=== PATIENT | male | born 1940 | race Two or more races ===

== ENCOUNTER 2019-09-21 08:33 | Day surgery (SDC) | payer OTHER ==
[2019-09-20 17:24] VITALS: BMI 34.3
[2019-09-21 09:19] VITALS: BP 118/71; PULSE 106; TEMP 98.5
== END 2019-09-21 09:30 | disposition home or self-care (01) ==
LOC: JASU-SURG 08:33
PROVIDERS: ATTEND Urology
DX: Z53.8 Procedure and treatment not carried out for other reasons (principal)
CPT/HCPCS: 82962

== ENCOUNTER 2019-09-21 10:15 | Inpatient (IN) | payer OTHER ==
--- NOTE | 2019-09-21 10:48 | PDOC ---
History of Present Illness - General Stated Complaint: Shortness of Breath Time Seen by Provider: 09/21/19 10:35 Past History - Past Medical History Allergies/Adverse Reactions: Allergies Allergy/AdvReac Type Severity Reaction Status Date / Time No Known Drug Allergies Allergy Verified 04/11/16 09:50 Home Medications: Ambulatory Orders Metoprolol Succinate [Toprol Xl] 25 mg PO DAILY 09/21/19 Sitagliptin Phosphate [Januvia] 25 mg PO DAILY 09/21/19 Anemia: No Asthma: No Cancer: No Cardiac Disorders: No CVA: No COPD: No CHF: No Dementia: No Diabetes: Yes (NIDDM) GI Disorders: No Disorders: Yes (BPH) HTN: Yes Hypercholesterolemia: No Liver Disease: No Seizures: No Thyroid Disease: No - Surgical History Abdominal Surgery: No Appendectomy: No Cardiac Surgery: No Cholecystectomy: No Lung Surgery: No Neurologic Surgery: No Orthopedic Surgery: Yes (RIGHT KNEE ARTHROSCOPY 2005) - Immunization History Immunization Up to Date: Yes - Psycho Social/Smoking Cessation Hx Smoking History: Never smoked Have you smoked in the past 12 months: No Information on smoking cessation initiated: No Hx Alcohol Use: Yes Drug/Substance Use Hx: No Substance Use Type: Alcohol Hx Substance Use Treatment: No *Physical Exam - Vital Signs Last Vital Signs Temp Pulse Resp BP Pulse Ox 98.6 F 85 20 135/54 L 85 L 09/21/19 10:15 09/21/19 10:15 09/21/19 10:15 09/21/19 10:15 09/21/19 10:15 ED Treatment Course - LABORATORY CBC & Chemistry Diagram: 09/21/19 11:20 09/21/19 11:20 Medical Decision Making - Medical Decision Making 09/21/19 11:37 HPI: 79yo hx HTN, DM, prostate CA (s/p prostatectomy ~20yrs ago), LKR (2016), and chronic diastolic CHF (per chart review in 2016, LVSF normal, mild concentric LVH) sent from [facility] (there for penile lesion biopsy by Dr Serrano) for asymptomatic hypoxia with O2 sat 85-88% on RA. Endorses chronic difficulty with urination 2/2 BPH. Denies smoking, alcohol, drugs, hx pulmonary issues or COPD or asthma, CANTRELL, need for O2 at home, hx similar episodes, hx DVT/PE, hormone use , recent travel, recent surgery, cough, leg swelling, leg pain, fever, chills, fatigue, headache, dizziness, numbness/tingling, weakness, vision changes, shortness of breath, chest pain, palpitations, abdominal pain, blood in stool, diarrhea, constipation, nausea, vomiting, dysuria, hematuria, confusion. 04/19/16 - last Echo, LVSF normal, mild concentric LVH PCP - Mae Pastrana ROS: Constitutional: Negative for chills, fever, fatigue, diaphoresis. HENT: Negative for sore throat, rhinorrhea, congestion. Eyes: Negative for visual disturbance. Respiratory: Positive for low O2 sat. Negative for shortness of breath, CANTRELL, cough, and wheezing. Cardiovascular: Negative for chest pain, palpitations, and leg swelling. Gastrointestinal: Negative for abdominal pain, blood in stool, constipation, diarrhea, nausea, and vomiting. Genitourinary: Positive for chronic difficulty with urination and penile lesion. Negative for dysuria, flank pain, and hematuria. Musculoskeletal: Negative for myalgias, back pain, and neck pain. Skin: Negative for rash. Neurological: Negative for light-headedness, dizziness, vertigo, syncope, weakness, numbness and headaches. Psychiatric/Behavioral: Negative for behavioral problems and confusion. PE: Gen: Alert, NAD, comfortable-appearing. HEENT: PERRL, EOMI, MMM, NCAT. No conjunctival pallor. Sclera are non-icteric. CV: Regular rate and rhythm. +holosystolic murmur. No rubs, or gallops. PULM: No resp distress. CTAB, no wheezes, rales, or rhonchi. ABD: soft, NT/ND, no rebound tenderness or guarding, no CVA tenderness. BACK: No TTP of c/t/l-spine. No step-offs or deformities. MSK: No bony deformities. 2+ pulses in all extremities. NEURO: AAOx3. PERRL. No gross CN deficits. Strength and sensation grossly intact throughout. EXTREMITIES: No cyanosis. No clubbing. 1+ BLE edema. No calf tenderness. PSYCH: Normal mood and thought pattern. SKIN: Warm and dry. Normal capillary refill. No rashes. No jaundice. MDM: 79yo hx HTN, DM, prostate CA (s/p prostatectomy ~20yrs ago), LKR (2016), and chronic diastolic CHF (per chart review in 2016, LVSF normal, mild concentric LVH) sent from [facility] (there for penile lesion biopsy by Dr Serrano) for asymptomatic hypoxia with O2 sat 85-88% on RA. O2 sat 88% on RA, 94-96% on 2L NC, other VSS, afebrile, lungs CTAB, holosystolic murmur, 1+ BLE edema. Ddx: COPD, CHF, PNA, PE, ACS/AK, arrhythmia, methemoglobinemia, CO poisoning, metabolic derangement, anemia, infection, UTI -EKG reviewed: sinus rhythm with PACs, 85bpm, LAD, normal intervals, QTc 414ms, LVH, no e/o acute ischemia, no significant changes compared to 09/13/19 -CXR -CTPE -CBC,CMP,Mg,Phos,Coags,Cardiac profile,BNP,ABG,UA/UC -O2 NC 2L -Dispo: pending w/u, likely admit tele obs 09/21/19 12:17 Labs reviewed. CBC,CMP WBC 6.1 K/mm3 (4.0-10.0) 09/21/19 11:20 RBC 4.02 M/mm3 (4.00-5.60) 09/21/19 11:20 Hgb 13.0 GM/dL (11.7-16.9) 09/21/19 11:20 Hct 39.8 % (35.4-49) 09/21/19 11:20 MCV 99.1 fl (80-96) H 09/21/19 11:20 MCH 32.3 pg (25.7-33.7) 09/21/19 11:20 MCHC 32.6 g/dl (32.0-35.9) 09/21/19 11:20 RDW 16.7 % (11.9-15.9) H 09/21/19 11:20 Plt Count 160 K/MM3 (134-434) 09/21/19 11:20 MPV 8.5 fl (7.5-11.1) 09/21/19 11:20 Absolute Neuts (auto) 4.9 K/mm3 (1.5-8.0) 09/21/19 11:20 Neutrophils % 80.2 % (42.8-82.8) 09/21/19 11:20 Lymphocytes % 12.3 % (8-40) D 09/21/19 11:20 Monocytes % 5.3 % (3.8-10.2) 09/21/19 11:20 Eosinophils % 1.4 % (0-4.5) 09/21/19 11:20 Basophils % 0.8 % (0-2.0) 09/21/19 11:20 Nucleated RBC % 0 % (0-0) 09/21/19 11:20 Sodium 138 mmol/L (136-145) 09/21/19 11:20 Potassium 5.2 mmol/L (3.5-5.1) H 09/21/19 11:20 Chloride 98 mmol/L (98-107) 09/21/19 11:20 Carbon Dioxide 33 mmol/L (21-32) H 09/21/19 11:20 Anion Gap 7 MMOL/L (8-16) L 09/21/19 11:20 BUN 30.1 mg/dL (7-18) H 09/21/19 11:20 Creatinine 1.3 mg/dL (0.55-1.3) 09/21/19 11:20 Est GFR (CKD-EPI)AfAm 59.31 09/21/19 11:20 Est GFR (CKD-EPI)NonAf 51.17 09/21/19 11:20 Random Glucose 79 mg/dL (74-106) 09/21/19 11:20 Calcium 8.6 mg/dL (8.5-10.1) 09/21/19 11:20 Phosphorus 3.7 mg/dL (2.5-4.9) 09/21/19 11:20 Magnesium 1.9 mg/dL (1.8-2.4) 09/21/19 11:20 Total Bilirubin 1.7 mg/dL (0.2-1) H 09/21/19 11:20 AST 40 U/L (15-37) H 09/21/19 11:20 ALT 22 U/L (13-61) 09/21/19 11:20 Alkaline Phosphatase 121 U/L (45-117) H 09/21/19 11:20 Creatine Kinase 44 U/L (26-308) 09/21/19 11:20 Troponin I 0.26 ng/ml (0.00-0.05) H 09/21/19 11:20 B-Natriuretic Peptide 361.2 pg/ml (5-450) 09/21/19 11:20 Total Protein 7.2 g/dl (6.4-8.2) 09/21/19 11:20 Albumin 3.1 g/dl (3.4-5.0) L 09/21/19 11:20 Of note, trop 0.26, BNP 361.2, K 5.2, BUN 30.1, Cr 1.3 Per Attending, some crackles on lungs, in addition to LE edema, tx with lasix. -Lasix 20 IV -Aspirin 325 09/21/19 12:25 CXR reviewed: no acute pathology, no change compared to 09/13/19 09/21/19 12:48 ABG reviewed ABG Results ABG pH 7.38 (7.35-7.45) 09/21/19 12:33 ABG pCO2 at Pt Temp 57.9 mmHg (35-45) H 09/21/19 12:33 ABG pO2 at Pt Temp 66.6 mmHg (80-100) L 09/21/19 12:33 ABG HCO3 33.8 mmol/L (22-27) H 09/21/19 12:33 ABG O2 Sat (Measured) 91.2 % (95-98) L 09/21/19 12:33 ABG O2 Content 15.0 % vol 09/21/19 12:33 ABG Base Excess 7.5 meq/l (-2-2) H 09/21/19 12:33 09/21/19 13:50 Pt has intermittent cough while in ED. States that has chronic intermittent dry cough, unchanged recently. 09/21/19 15:38 CTPE reviewed: IMPRESSION: 1. Limited study with no evidence of central pulmonary emboli. 2. Enlarged central pulmonary arteries consistent with pulmonary hypertension. 3. Elevation of the left hemidiaphragm with extensive atelectatic changes involving the left upper and lower lobes. The possibility of acute pneumonia within the left upper lobe cannot be excluded. 4. Findings consistent with cirrhosis with large serpiginous varices within the upper abdomen. Signed out to admitting team. Pending urine and 2nd trop. Discharge - Discharge Information Problems reviewed: Yes Clinical Impression/Diagnosis: Troponin level elevated, Hypoxia Condition: Stable - Admission Yes - Follow up/Referral Referrals: July Pastrana [Primary Care Provider] - - Patient Discharge Instructions - Post Discharge Activity
[2019-09-21 11:09] VITALS: BMI 34.0
[2019-09-21 11:31] LABS: BASO % 0.8 % (0-2.0); EOS % 1.4 % (0-4.5); HEMATOCRIT 39.8 % (35.4-49); LYMPH % 12.3 % (8-40); MCH 32.3 pg (25.7-33.7); MCHC 32.6 g/dl (32.0-35.9); MEAN CELL VOLUME 99.1 fl (80-96); MEAN PLT VOLUME 8.5 fl (7.5-11.1); MONO % 5.3 % (3.8-10.2); NEUT % 80.2 % (42.8-82.8); PLATELET COUNT 160 K/MM3 (134-434); RBC 4.02 M/mm3 (4.00-5.60); RDW 16.7 % (11.9-15.9); WHITE BLOOD COUNT 6.1 K/mm3 (4.0-10.0)
[2019-09-21 11:45] LABS: INR 1.13 (0.83-1.09); PROTHROMBIN TIME (PATIENT) 13.4 SEC (9.7-13.0)
[2019-09-21 12:11] LABS: ALBUMIN 3.1 g/dl (3.4-5.0); BILIRUBIN,TOTAL 1.7 mg/dL (0.2-1); BLOOD UREA NITROGEN 30.1 mg/dL (7-18); CALCIUM 8.6 mg/dL (8.5-10.1); CREATININE 1.3 mg/dL (0.55-1.3); MAGNESIUM 1.9 mg/dL (1.8-2.4); N-TERMINAL BNP 361.2 pg/ml (5-450); PHOSPHOROUS 3.7 mg/dL (2.5-4.9); POTASSIUM 5.2 mmol/L (3.5-5.1); TOT PROT 7.2 g/dl (6.4-8.2)
[2019-09-21] MEDS ORDERED: SODIUM CHLORIDE 0.9% 500 ML INFUS.BAG IV ONE (12:12)
[2019-09-21] MEDS ORDERED: ASPIRIN 325 MG TABLET PO ONE (12:13)
[2019-09-21] MEDS ORDERED: FUROSEMIDE 40 MG/4 ML INJECTABLE VIAL IVPUSH ONE (12:16)
--- NOTE | 2019-09-21 12:21 | PDOC ---
Attending Attestation - Resident Resident Name: Yolanda Lo - ED Attending Attestation I have performed the following: I have examined & evaluated the patient, The case was reviewed & discussed with the resident, I agree w/resident's findings & plan - HPI HPI: 09/21/19 12:16 79-year-old male with history of hypertension, diabetes sent from [facility] where he was scheduled to have outpatient urology procedure for otherwise asymptomatic hypoxia. Patient denies any chest pain or palpitations, reports baseline limited exercise tolerance secondary to right knee pain, denies any new leg swelling or orthopnea. At baseline has ankle swelling and reports sleeping on 2 -3 pillows. No known exposures, no no smoking history, no recent DVT or PE risk factors - Physicial Exam PE: 09/21/19 12:18 Vitals as noted with O2 sat 85% on room air, improved to 93% on supplemental nasal cannula Alert, no acute distress, speaking full sentences No JVD Heart is regular, bibasilar crackles Abdomen benign 1+ pitting edema to mid ardon - Critical Care Time Total Critical Care Time: 30 Critical Care Statement: The care of this patient involved high complexity decision making to prevent further life threatening deterioration of the patient 's condition and/or to evaluate & treat vital organ system(s) failure or risk of failure. - Medical Decision Making 09/21/19 12:18 79-year-old male with otherwise asymptomatic hypoxia, history of diastolic heart failure and evidence of some volume overload here. Question chronic CHF versus chronic lung disease, rule out infectious process or PE, but seems clinically less likely. No evidence of other exposures. Labs including ABG Chest x-ray, EKG Supplemental oxygen Chest x-ray, CTA chest Admission 09/21/19 12:19 Labs notable for equivocal troponin, normal BNP, normal white count, creatinine 1.3 with potassium 5.2. Chest x-ray with large heart, left lower lobe density versus diaphragmatic elevation on my preliminary review Trial of low-dose Lasix, proceed with admission, CTA imaging pending. Heart Score/ECG Review #1 ECG reviewed & interpreted by me at: 10:09 General ECG Interpretation: Sinus Rhythm, Normal Rate (85), Normal Intervals ( qtc 414, LVH), No acute ischemic changes (prwp with Q waves throughout precordium)
[2019-09-21] MEDS ORDERED: ASPIRIN 81 MG CHEWABLE TABLETS ONE (12:31)
[2019-09-21] MEDS ORDERED: FUROSEMIDE 40 MG/4 ML INJECTABLE VIAL ONE (12:32)
[2019-09-21 12:41] LABS: ARTERIAL BLD GAS O2 SATURATION 91.2 % (95-98); ARTERIAL BLOOD GAS BASE EXCESS 7.5 meq/l (-2-2); ARTERIAL BLOOD GAS PCO2 57.9 mmHg (35-45); ARTERIAL BLOOD GAS PO2 66.6 mmHg (80-100); ARTERIAL BLOOD GAS pH 7.38 (7.35-7.45)
[2019-09-21 12:42] LABS: ALLENS TEST POSITIVE
--- NOTE | 2019-09-21 14:46 | EKG ---
Test Reason : Blood Pressure : / mmHG Vent. Rate : 085 BPM Atrial Rate : 085 BPM P-R Int : 166 ms QRS Dur : 090 ms QT Int : 348 ms P-R-T Axes : -08 -38 004 degrees QTc Int : 414 ms SINUS RHYTHM WITH PREMATURE ATRIAL COMPLEXES LEFT AXIS DEVIATION VOLTAGE CRITERIA FOR LEFT VENTRICULAR HYPERTROPHY POSSIBLE LATERAL INFARCT (CITED ON OR BEFORE 29-APR-2016) INFERIOR INFARCT (CITED ON OR BEFORE 29-APR-2016) ABNORMAL ECG WHEN COMPARED WITH ECG OF 13-SEP-2019 10:28, PREMATURE ATRIAL COMPLEXES ARE NOW PRESENT Confirmed by MD TAY, LONNIE ([id number]) on 09/21/2019 2:45:56 PM Referred By: Confirmed By:LONNIE CROSS MD
--- NOTE | 2019-09-21 15:40 | HP ---
CHIEF COMPLAINT: asymptomatic hypoxia pre - op for urology procedure PCP: Dr. Pastrana HISTORY OF PRESENT ILLNESS: Patient is an 79 year old male with a significant past medical history of hypertension and diabetes. He was scheduled for a scheduled penile biopsy as an outpatient today at [facility]. He was noted to have low oxygen levels in the 80s during pre-op but was asymptomatic without any complaints. Patient denies any chest pain or palpitations, reports baseline limited exercise tolerance secondary to right knee pain, denies any new leg swelling but reports orthopnea at home and has to use a few pillows (2-3) to prop him up to sleep. At baseline has ankle swelling +1 bilaterally. No known exposures, no smoking history, no recent DVT or PE risk factors. ER course was notable for: (1) cta/chest: no evidence of PE, enlarged central pulmonary arteries consistent with pulm. hypertension, elevation of the left hemidiaphragm with extensive atelectatic changes involving the left upper and lower lobes. possible acute pneumonia within the left upper lobe cannot be excluded. 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 (2) trop 0.26, 0.24 (3) bili 1.7 (4) k 5.2 (5) ab.38, co2 57.9, 02. 65.6, hco3 33.8, o2 91.2 Recent Travel: PAST MEDICAL HISTORY: hypertension and diabetes PAST SURGICAL HISTORY: Social History: Smoking: denies Alcohol: occasional Drugs: none Allergies No Known Drug Allergies Allergy (Verified 04/11/16 09:50) HOME MEDICATIONS: Home Medications Medication Instructions Recorded Metoprolol Succinate [Toprol Xl] 25 mg PO DAILY 09/21/19 Sitagliptin Phosphate [Januvia] 25 mg PO DAILY 09/21/19 REVIEW OF SYSTEMS CONSTITUTIONAL: Absent: fever, chills, diaphoresis, generalized weakness, malaise, loss of appetite, weight change HEENT: Absent: rhinorrhea, nasal congestion, throat pain, throat swelling, difficulty swallowing, mouth swelling, ear pain, eye pain, visual changes CARDIOVASCULAR: Absent: chest pain, syncope, palpitations, irregular heart rate, lightheadedness , peripheral edema RESPIRATORY: Absent: cough, shortness of breath, dyspnea with exertion, wheezing, stridor, hemoptysis GASTROINTESTINAL: Absent: abdominal pain, abdominal distension, nausea, vomiting, diarrhea, constipation, melena, hematochezia GENITOURINARY: Absent: dysuria, frequency, urgency, hesitancy, hematuria, flank pain, genital pain MUSCULOSKELETAL: Absent: myalgia, arthralgia, joint swelling, back pain, neck pain SKIN: Absent: rash, itching, pallor HEMATOLOGIC/IMMUNOLOGIC: Absent: easy bleeding, easy bruising, lymphadenopathy, frequent infections ENDOCRINE: Absent: unexplained weight gain, unexplained weight loss, heat intolerance, cold intolerance NEUROLOGIC: Absent: headache, focal weakness or paresthesias, dizziness, unsteady gait, seizure, mental status changes, bladder or bowel incontinence PSYCHIATRIC: Absent: anxiety, depression, suicidal or homicidal ideation, hallucinations. PHYSICAL EXAMINATION Vital Signs - 24 hr 09/21/19 10:15 Temperature 98.6 F Pulse Rate 85 Respiratory 20 Rate Blood Pressure 135/54 L O2 Sat by Pulse 85 L Oximetry (%) GENERAL: Awake, alert, and fully oriented, in no acute distress. tolerating room air HEAD: Normal with no signs of trauma. EYES: Pupils equal, round and reactive to light, extraocular movements intact, sclera anicteric, conjunctiva clear. No lid lag. EARS, NOSE, THROAT: Ears normal, nares patent, oropharynx clear without exudates. Moist mucous membranes. NECK: Normal range of motion, supple without lymphadenopathy, JVD, or masses. LUNGS: left lung with diminished breath sounds, right lung clear to auscultation HEART: Regular rate and rhythm ABDOMEN: Soft, nontender, not distended, normoactive bowel sounds, no guarding, no rebound, no masses. No hepatomegaly or splenomegaly. MUSCULOSKELETAL: Normal range of motion at all joints. No bony deformities or tenderness. No CVA tenderness. UPPER EXTREMITIES: No peripheral edema. LOWER EXTREMITIES: 2+ peripheral edema bilaterally lower ext. NEUROLOGICAL: Normal speech. Normal gait. PSYCHIATRIC: Appropriate mood and affect. SKIN: Warm, dry, normal turgor, no rashes or lesions noted, normal capillary refill. Laboratory Results - last 24 hr 09/21/19 09/21/19 09/21/19 11:20 11:20 11:20 WBC 6.1 RBC 4.02 Hgb 13.0 Hct 39.8 MCV 99.1 H MCH 32.3 MCHC 32.6 RDW 16.7 H Plt Count 160 MPV 8.5 Absolute Neuts (auto) 4.9 Neutrophils % 80.2 Lymphocytes % 12.3 D Monocytes % 5.3 Eosinophils % 1.4 Basophils % 0.8 Nucleated RBC % 0 PT with INR INR Anticoagulation Therapy Puncture Site ABG pH ABG pCO2 at Pt Temp ABG pO2 at Pt Temp ABG HCO3 ABG O2 Sat (Measured) ABG O2 Content ABG Base Excess Padilla Test Carboxyhemoglobin Methemoglobin O2 Delivery Device Oxygen Flow Rate Vent Mode Vent Rate Mechanical Rate Pressure Support Vent Sodium 138 Potassium 5.2 H Chloride 98 Carbon Dioxide 33 H Anion Gap 7 L BUN 30.1 H Creatinine 1.3 Est GFR (CKD-EPI)AfAm 59.31 Est GFR (CKD-EPI)NonAf 51.17 Random Glucose 79 Calcium 8.6 Phosphorus Magnesium Total Bilirubin 1.7 H AST 40 H ALT 22 Alkaline Phosphatase 121 H Creatine Kinase 44 Troponin I 0.26 H B-Natriuretic Peptide Total Protein 7.2 Albumin 3.1 L 09/21/19 09/21/19 09/21/19 11:20 11:20 12:33 WBC RBC Hgb Hct MCV MCH MCHC RDW Plt Count MPV Absolute Neuts (auto) Neutrophils % Lymphocytes % Monocytes % Eosinophils % Basophils % Nucleated RBC % PT with INR 13.40 H INR 1.13 H Anticoagulation Therapy No Result Required. Puncture Site Left radial ABG pH 7.38 ABG pCO2 at Pt Temp 57.9 H ABG pO2 at Pt Temp 66.6 L ABG HCO3 33.8 H ABG O2 Sat (Measured) 91.2 L ABG O2 Content 15.0 ABG Base Excess 7.5 H Padilla Test Positive Carboxyhemoglobin 2.0 Methemoglobin < 1.0 O2 Delivery Device No Result Required. Oxygen Flow Rate N/c Vent Mode No Result Required. Vent Rate No Result Required. Mechanical Rate No Result Required. Pressure Support Vent No Result Required. Sodium Potassium Chloride Carbon Dioxide Anion Gap BUN Creatinine Est GFR (CKD-EPI)AfAm Est GFR (CKD-EPI)NonAf Random Glucose Calcium Phosphorus 3.7 Magnesium 1.9 Total Bilirubin AST ALT Alkaline Phosphatase Creatine Kinase Troponin I B-Natriuretic Peptide 361.2 Total Protein Albumin ASSESSMENT/PLAN: Problem List - Problem (1) Acute hypercapnic respiratory failure Assessment/Plan: patient airway stable, will put on 2 liters of nasal cannula and alternate with venti mask pulmonary west stable, mental status at baseline co2 elevated at 57 monitor Code(s): J96.02 - ACUTE RESPIRATORY FAILURE WITH HYPERCAPNIA (2) Cirrhosis Assessment/Plan: large serpignous varicies within the upper abdomen seen. will consult GI for further recommendations Code(s): K74.60 - UNSPECIFIED CIRRHOSIS OF LIVER (3) Hypoxia Assessment/Plan: cta with significant atelectsis of left upper and lower lobe as well as possible acute pneumonia. patient is afebrile and hemodynaically stable. will give ceftriaxone and azithromycin pending pulmonary further recommedations monitor air way 2 liters of nasal cannula, duonebs ordered currently reports being comfortable on room air, however reports orthpnea bnp stable Code(s): R09.02 - HYPOXEMIA (4) Troponin level elevated Assessment/Plan: trop 0.26, 0.24, no chest pain cardiology consulted will hold of on anticoag as patient has varicies seen on CTA Code(s): R79.89 - OTHER SPECIFIED ABNORMAL FINDINGS OF BLOOD CHEMISTRY (5) Abnormal LFTs (liver function tests) Assessment/Plan: monitor daily Code(s): R79.89 - OTHER SPECIFIED ABNORMAL FINDINGS OF BLOOD CHEMISTRY (6) Acute kidney injury Assessment/Plan: monitor daily kidney function Code(s): N17.9 - ACUTE KIDNEY FAILURE, UNSPECIFIED (7) Diabetes Assessment/Plan: novolog ss based on bgms. hmga1c in a.m. Code(s): E11.9 - TYPE 2 DIABETES MELLITUS WITHOUT COMPLICATIONS (8) Pneumonia Assessment/Plan: start on ceftriaxone and azithromycin pending pulmonary consult Code(s): J18.9 - PNEUMONIA, UNSPECIFIED ORGANISM (9) Prophylactic measure Assessment/Plan: fen tolerating po/diabetic diet monitor electrolytes full code Code(s): Z29.9 - ENCOUNTER FOR PROPHYLACTIC MEASURES, UNSPECIFIED Visit type - Emergency Visit Emergency Visit: Yes ED Registration Date: 09/21/19 Care time: The patient presented to the Emergency Department on the above date and was hospitalized for further evaluation of their emergent condition. - New Patient This patient is new to me today: Yes Date on this admission: 09/22/19 - Critical Care Critical Care patient: No
[2019-09-21] MEDS ORDERED: ENOXAPARIN NA (PORCINE) 100 MG/1 ML DISP.SYRIN SQ ONE (17:45)
[2019-09-21] MEDS ORDERED: CEFTRIAXONE 1 GM in DEXTROSE 5%-WATER - 50 ML IVPB ONE (17:45)
[2019-09-21] MEDS ORDERED: DEXTROSE 5%-WATER - 50 ML IVPB ONE (18:48)
[2019-09-21] MEDS ORDERED: cefTRIAXone SODIUM 1 GM VIAL ONE (18:48)
[2019-09-21] MEDS: AZITHROMYCIN IVPB 500 MG/250 ML BAG IVPB SCH (19:00)
[2019-09-21 19:58] LABS: EPI CELLS 0.4 /HPF (0-5/HPF); HYALINE CASTS 1 /lpf (0-8); URINE APPEARANCE CLEAR; URINE BACTERIA 1.5 /hpf (NEGATIVE); URINE BILIRUBIN NEGATIVE (NEGATIVE); URINE COLOR YELLOW; URINE GLUCOSE (UA) NEGATIVE (NEGATIVE); URINE KETONE NEGATIVE (NEGATIVE); URINE LEUK ESTERASE TRACE (NEGATIVE); URINE NITRITE NEGATIVE (NEGATIVE); URINE PROTEIN NEGATIVE (NEGATIVE); URINE RBC 22 /hpf (0-4); URINE UROBILINOGEN 0.2 mg/dL (0.2-1.0); URINE WBC 1 /hpf (0-5)
--- NOTE | 2019-09-21 20:03 | CON.CARD ---
Consult Consult Specialty:: cardiollogy Reason for Consultation:: elevated TNI; hypoxia - History of Present Illness History of Present Illness: Mr. Hardy is an 79-year-old man with history of hypertension, diabetes,liver cirrhosis, now sent from [facility], where he was scheduled to have outpatient urology procedure, for asymptomatic hypoxia. In ER, TNI was noted to be elevated (0.26). Patient denies any chest pain or palpitations; reports baseline limited exercise tolerance secondary to right knee pain, denies any new leg swelling, or orthopnea. At baseline, has ankle swelling, and reports sleeping on 2-3 pillows. No known exposures, no no smoking history, no recent DVT or PE risk factors. 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 Cardio/Vascular: Yes: Aortic Insufficiency, HTN Pulmonary: Yes: COPD, Pneumonia Hepatobiliary: Yes: Other (cirrhosis, varices, splenomegaly, portal hypertension) Musculoskeletal: Yes: Osteoarthritis Endocrine: Yes: Diabetes Mellitus - Past Surgical History Past Surgical History: Yes: Joint Replacement (Left TKR) - Alcohol/Substance Use Hx Alcohol Use: Yes History of Substance Use: reports: None - Smoking History Smoking history: Never smoked Have you smoked in the past 12 months: No - Social History Usual Living Arrangement: Other ( from -lives alone) ADL: Independent Home Medications - Allergies Allergies/Adverse Reactions: Allergies Allergy/AdvReac Type Severity Reaction Status Date / Time No Known Drug Allergies Allergy Verified 04/11/16 09:50 - Home Medications Home Medications: Ambulatory Orders Sitagliptin Phosphate [Januvia] 25 mg PO DAILY 09/21/19 Amox-Tr/K Cl [Augmentin - 500Mg Tablet] 1 tab PO BID 5 Days #10 tab 09/24/19 Nadolol [Corgard -] 20 mg PO DAILY #90 tablet 09/24/19 Vital Signs: Vital Signs Temperature 98.3 F 09/21/19 18:02 Pulse Rate 107 H 09/21/19 18:02 Respiratory Rate 20 09/21/19 18:02 Blood Pressure 131/74 09/21/19 18:02 O2 Sat by Pulse Oximetry (%) 92 L 09/21/19 18:02 - Other Data Labs, Other Data: CBC, BMP 09/21/19 11:20 09/21/19 11:20 INR, PTT INR 1.13 (0.83-1.09) H 09/21/19 11:20 Troponin, BNP 09/21/19 09/21/19 09/21/19 11:20 11:20 15:50 Troponin I 0.26 H 0.24 H B-Natriuretic Peptide 361.2 Troponin, BNP 09/21/19 09/21/19 09/21/19 11:20 11:20 15:50 Troponin I 0.26 H 0.24 H B-Natriuretic Peptide 361.2 Imaging - Results Chest X-ray: Image Reviewed Cat Scan: Image Reviewed Problem List - Problems (1) Respiratory failure with hypoxia and hypercapnia Assessment/Plan: being treated for pneumonia. F/u ECHO. Code(s): J96.91 - RESPIRATORY FAILURE, UNSPECIFIED WITH HYPOXIA; J96.92 - RESPIRATORY FAILURE, UNSPECIFIED WITH HYPERCAPNIA (2) Cirrhosis Assessment/Plan: F/u with GI. Code(s): K74.60 - UNSPECIFIED CIRRHOSIS OF LIVER (3) Hypoxia Code(s): R09.02 - HYPOXEMIA (4) Pneumonia Assessment/Plan: on antibiotics. Code(s): J18.9 - PNEUMONIA, UNSPECIFIED ORGANISM (5) Troponin level elevated Assessment/Plan: TNI 0.26 (with CK 44)-->0.24 TNi 0.02 in 2016. EKG: NSR; suggestion of old IW and/or lateral myocardial injury; no acute STT changes. Plan: f/u on telemetry ECHO for LVEF, wall motion, chamber size, valve status (hx pulmonary HTN). Records of previous cardiac workups (pt is a poor historian). Code(s): R79.89 - OTHER SPECIFIED ABNORMAL FINDINGS OF BLOOD CHEMISTRY (6) Abnormal LFTs (liver function tests) Code(s): R79.89 - OTHER SPECIFIED ABNORMAL FINDINGS OF BLOOD CHEMISTRY (7) Hyperlipidemia with target LDL less than 70 Code(s): E78.5 - HYPERLIPIDEMIA, UNSPECIFIED (8) Pneumonia Assessment/Plan: On antibiotics. Fluids (PO and IV). Code(s): J18.9 - PNEUMONIA, UNSPECIFIED ORGANISM Qualifiers: Pneumonia type: aspiration pneumonia Aspiration pneumonia type: due to vomi t Lung location: lower lobe of lung (9) Status post left knee replacement Code(s): Z96.652 - PRESENCE OF LEFT ARTIFICIAL KNEE JOINT (10) Hyperkalemia Assessment/Plan: F/u electrolytes as he undergoes hydration. Code(s): E87.5 - HYPERKALEMIA (11) Dehydration Assessment/Plan: Start IV fluids; encourage PO fluids. F/u Is and Os, electrolytes (mild hyperkalemia on admission). Code(s): E86.0 - DEHYDRATION (12) Acquired elevated diaphragm Assessment/Plan: CT chest: significantly elevated left hemidiagphragm with related atelectasis; no pleural effusion. Being treated for pneumonia. On fluids. Code(s): J98.6 - DISORDERS OF DIAPHRAGM (13) Hematuria Assessment/Plan: f/u Hb. F/u with urologist. Code(s): R31.9 - HEMATURIA, UNSPECIFIED Qualifiers: Glomerular morphologic changes: dense deposit disease (14) Pulmonary HTN Code(s): I27.20 - PULMONARY HYPERTENSION, UNSPECIFIED
[2019-09-21] MEDS: DEXTROSE 5%-0.45% SALINE 1,000 ML IV SCH (21:11)
[2019-09-21] MEDS: INSULIN SLIDING SCALE (NOVOLOG) 1 VIAL SQ SCH (21:12)
[2019-09-22] MEDS: INSULIN SLIDING SCALE (NOVOLOG) 1 VIAL SQ SCH ×4 (06:02→21:43)
[2019-09-22 08:00] LABS: BASO % 0.7 % (0-2.0); EOS % 7.4 % (0-4.5); HEMATOCRIT 33.9 % (35.4-49); HEMOGLOBIN 11.3 GM/dL (11.7-16.9); LYMPH % 22.1 % (8-40); MCH 32.8 pg (25.7-33.7); MCHC 33.4 g/dl (32.0-35.9); MEAN PLT VOLUME 8.2 fl (7.5-11.1); MONO % 6.2 % (3.8-10.2); NEUT % 63.6 % (42.8-82.8); PLATELET COUNT 123 K/MM3 (134-434); RBC 3.46 M/mm3 (4.00-5.60); WHITE BLOOD COUNT 4.9 K/mm3 (4.0-10.0)
[2019-09-22 08:27] LABS: ALBUMIN 2.6 g/dl (3.4-5.0); BILIRUBIN,TOTAL 1.2 mg/dL (0.2-1); BLOOD UREA NITROGEN 32.2 mg/dL (7-18); CALCIUM 8.5 mg/dL (8.5-10.1); CREATININE 1.3 mg/dL (0.55-1.3); MAGNESIUM 1.8 mg/dL (1.8-2.4); POTASSIUM 4.2 mmol/L (3.5-5.1)
--- NOTE | 2019-09-22 08:37 | CON.GI ---
Consult Consult Specialty:: GI Referred by:: Chika Bui NP Reason for Consultation:: Varices - History of Present Illness History of Present Illness: Patient is a 79 y/o male with past medical history of HTN and DM. Consult was placed for large sepignious varices within upper abdomen. Patient had an episode prior to urology procedure yesterday and Chest CTA was done which showed incidental findings consistent with cirrhosis with large sepignious varices within the upper abdomen. Patient states that he used to drink a pint of whiskey a day starting in his 20s. He states he has "slowed down" since then with his drinking. Denies nausea, vomiting, abdominal pain, diarrhea, constipation, rectal bleeding, melena, or abnormal weight loss. 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 Cardio/Vascular: Yes: Aortic Insufficiency, HTN Pulmonary: Yes: COPD, Pneumonia Hepatobiliary: Yes: Other (cirrhosis, varices, splenomegaly, portal hypertension) Musculoskeletal: Yes: Osteoarthritis Endocrine: Yes: Diabetes Mellitus - Past Surgical History Past Surgical History: Yes: Joint Replacement (Left TKR) - Alcohol/Substance Use Hx Alcohol Use: Yes History of Substance Use: reports: None - Smoking History Smoking history: Never smoked Have you smoked in the past 12 months: No - Social History Usual Living Arrangement: Other ( from -lives alone) ADL: Independent Home Medications - Allergies Allergies/Adverse Reactions: Allergies Allergy/AdvReac Type Severity Reaction Status Date / Time No Known Drug Allergies Allergy Verified 04/11/16 09:50 - Home Medications Home Medications: Ambulatory Orders Metoprolol Succinate [Toprol Xl] 25 mg PO DAILY 09/21/19 Sitagliptin Phosphate [Januvia] 25 mg PO DAILY 09/21/19 Review of Systems - Review of Systems Constitutional: reports: No Symptoms Eyes: reports: No Symptoms HENT: reports: No Symptoms Neck: reports: No Symptoms Cardiovascular: reports: No Symptoms Respiratory: reports: No Symptoms Gastrointestinal: reports: No Symptoms Genitourinary: reports: No Symptoms Breasts: reports: No Symptoms Reported Musculoskeletal: reports: No Symptoms Integumentary: reports: No Symptoms Neurological: reports: No Symptoms Endocrine: reports: No Symptoms Hematology/Lymphatic: reports: No Symptoms Psychiatric: reports: No Symptoms Physical Exam-GI Vital Signs: Vital Signs Temperature 97.9 F 09/22/19 05:00 Pulse Rate 81 09/22/19 05:00 Respiratory Rate 20 09/22/19 05:00 Blood Pressure 123/64 09/22/19 05:00 O2 Sat by Pulse Oximetry (%) 94 L 09/21/19 21:00 Constitutional: Yes: No Distress, Calm Eyes: Yes: Conjunctiva Clear HENT: Yes: Atraumatic Cardiovascular: Yes: Regular Rate and Rhythm Respiratory: Yes: Regular, Diminished Gastrointestinal Inspection: Yes: WNL. No: Ascites, Distention, Hernia, Scars, Other ...Auscultate: Yes: Normoactive Bowel Sounds. No: Hyperactive Bowel Sounds, Hypoactive Bowel Sounds, No Bowel Sounds, Other ...Palpate: Yes: Soft. No: Firm/Rigid, Guarding, Hepatomegaly, Mass, Pulsatile Mass, Splenomegaly, Tenderness, Tenderness, Epigastium, Tenderness, Rebound, Other ...Percussion: Yes: Tympanitic. No: Dullness, Fluid Wave, Other Neurological: Yes: Alert, Oriented Psychiatric: Yes: Alert, Oriented Labs: CBC, BMP 09/22/19 07:05 09/22/19 07:05 INR, PTT INR 1.13 (0.83-1.09) H 09/21/19 11:20 Active Medications Generic Name Dose Route Start Last Admin Trade Name Brodyq PRN Reason Stop Dose Admin Azithromycin 500 mg in 250 mls @ 250 mls/hr 09/21/19 17:45 09/21/19 19:00 Zithromax 500mg Ivpb (Pre-Docked) IVPB 250 mls/hr DAILY JESSICA Administration Dextrose/Sodium Chloride 1,000 mls @ 83 mls/hr 09/21/19 20:30 09/21/19 21:11 D5-1/2ns - IV 83 mls/hr ASDIR JESSICA Administration Insulin Aspart 1 vial 09/21/19 22:00 09/22/19 06:02 Novolog Vial Sliding Scale - SQ Not Given ACHS JESSICA Protocol Nadolol 20 mg 09/22/19 10:00 Corgard - PO DAILY JESSICA Problem List - Problems (1) Cirrhosis, alcoholic Assessment/Plan: R>Needs EGD as outpatient to R/O Varices Chronic liver work-up as outpatient AFP [id number] and Abdominal US [id number] to screen for hepatoma instructed to follow up as outpatient Labs: Hepatitis profile Code(s): K70.30 - ALCOHOLIC CIRRHOSIS OF LIVER WITHOUT ASCITES
[2019-09-22] MEDS ORDERED: PT OWN MED DRAWER 7, Y5N ONE (09:15)
[2019-09-22] MEDS: AZITHROMYCIN IVPB 500 MG/250 ML BAG IVPB SCH (09:40)
[2019-09-22] MEDS: NADOLOL 20 MG TABLET (FP) PO SCH (09:40)
[2019-09-22] MEDS ORDERED: metoPROLOL SUCCINATE 25 MG TAB.SR.24H (FP) PO SCH (10:00)
--- NOTE | 2019-09-22 11:13 | PN ---
Progress Note (short form) - Note Progress Note: PULMONARY CONSULTATION DICTATED 09/22/19 IMP DYSPNEA ACUTE ON CHRONIC HYPOXEMIC/ HYPERCAPNEIC RESPIRATORY FAILURE PULMONARY HTN CHRONIC ATELECTATIC CHANGES LEFT HEMITHORAX LIKELY LEFT DIAPHRAGMATIC PARALYSIS ELEVATED TROPONIN HTN DM PLAN SUPPLEMENTAL O2 ECHO SNIFF TEST OUTPATIENT PFTS TREND TROPONINS SLEEP STUDIES AMBULATORY O2 SAT ON PRIOR TO DISCHARGE DR VILLASEÑOR Problem List - Problems (1) Acquired elevated diaphragm Code(s): J98.6 - DISORDERS OF DIAPHRAGM (2) Diabetes Code(s): E11.9 - TYPE 2 DIABETES MELLITUS WITHOUT COMPLICATIONS (3) Hypoxia Code(s): R09.02 - HYPOXEMIA (4) Pulmonary HTN Code(s): I27.20 - PULMONARY HYPERTENSION, UNSPECIFIED (5) Respiratory failure with hypoxia and hypercapnia Code(s): J96.91 - RESPIRATORY FAILURE, UNSPECIFIED WITH HYPOXIA; J96.92 - RESPIRATORY FAILURE, UNSPECIFIED WITH HYPERCAPNIA (6) Acute hypercapnic respiratory failure Code(s): J96.02 - ACUTE RESPIRATORY FAILURE WITH HYPERCAPNIA (7) HTN (hypertension) Code(s): I10 - ESSENTIAL (PRIMARY) HYPERTENSION (8) Troponin I above reference range Code(s): R79.89 - OTHER SPECIFIED ABNORMAL FINDINGS OF BLOOD CHEMISTRY
--- NOTE | 2019-09-22 12:42 | ECHO ---
Version: 1 Name: PREM VAIL Exam: Adult Echocardiogram Study Date: 09/22/2019, 11:33 AM Age: 79 Years MMode/2D Measurements & Calculations IVSd: 1.18 cm LVIDs: 3.4 cm LVIDd: 5.4 cm LVPWd: 1.15 cm LAV (MOD-bp): 95.0 ml ACS: 1.99 cm Ao root diam: 3.6 cm LVOT diam: 2.40 cm LA dimension: 4.4 cm Doppler Measurements & Calculations MV E max robert: 76.0 cm/sec Med E/e': 13.2 MV A max robert: 94.3 cm/sec Med Peak E' Robert: 5.8 cm/sec MV E/A: 0.81 Lat E/e': 8.2 Lat Peak E' Robert: 9.3 cm/sec Ao max P.2 mmHg ELFEGO(I,D): 2.25 cm Ao mean P.6 mmHg LV V1 mean: 63.1 cm/sec Ao V2 max: 194.8 cm/sec LV V1 mean P.80 mmHg AI P1/2t: 478.2 msec PI end-d robert: 130.3 cm/sec TR max robert: 275.1 cm/sec TR max P.3 mmHg Left Ventricle The left ventricular size, thickness and function are normal. Ejection Fraction = 65%. The transmitr al spectral Doppler flow pattern is suggestive of impaired LV relaxation. Right Ventricle The right ventricle is grossly normal size. The right ventricular systolic function is mildly reduce d. Atria The left atrium is moderately dilated. Right atrial size is normal. Mitral Valve There is mild to moderate mitral annular calcification. There is mild mitral regurgitation. Tricuspid Valve The tricuspid valve is not well visualized, but is grossly normal. There is mild tricuspid regurgita tion. Aortic Valve There is moderate aortic sclerosis.;. Mild to moderate aortic regurgitation. Pulmonic Valve The pulmonic valve is not well seen, but is grossly normal. Mild pulmonic valvular regurgitation. Great Vessels The aortic root is normal size. Normal aortic arch, descending and ascending aorta. Pericardium/Pleura There is no pericardial effusion. Tech Comments TDS due to orientation of patient's heart and body habitus. Summary Statements The left ventricular size, thickness and function are normal Ejection Fraction = 65%. The transmitral spectral Doppler flow pattern is suggestive of impaired LV relaxation. The right ventricle is grossly normal size. The right ventricular systolic function is mildly reduced. The left atrium is moderately dilated. Right atrial size is normal. There is mild to moderate mitral annular calcification. There is mild mitral regurgitation. The tricuspid valve is not well visualized, but is grossly normal. There is mild tricuspid regurgitation. There is moderate aortic sclerosis.; Mild to moderate aortic regurgitation. The pulmonic valve is not well seen, but is grossly normal. Mild pulmonic valvular regurgitation. The aortic root is normal size. Normal aortic arch, descending and ascending aorta There is no pericardial effusion. Enrrique Riddle[place] 09/22/2019, 12:42 PM Ordering Physician: Cristy Hui Referring Physician: CRISTY HUI Performed By: Marleni Call
--- NOTE | 2019-09-22 14:02 | PN ---
Progress Note, Physician History of Present Illness: Mr. Hardy is an 79-year-old man with history of hypertension, diabetes,liver cirrhosis, now sent from [facility], where he was scheduled to have outpatient urology procedure, for asymptomatic hypoxia. In ER, TNI was noted to be elevated (0.26) . Patient denies any chest pain or palpitations; reports baseline limited exercise tolerance secondary to right knee pain, denies any new leg swelling, or orthopnea. At baseline, has ankle swelling, and reports sleeping on 2-3 pillows. No known exposures, no no smoking history, no recent DVT or PE risk factors. - Current Medication List Current Medications: Active Medications Azithromycin (Zithromax 500mg Ivpb (Pre-Docked)) 500 mg in 250 mls @ 250 mls/ hr IVPB DAILY [facility] Last Admin: 09/22/19 09:40 Dose: 250 mls/hr Dextrose/Sodium Chloride (D5-1/2ns -) 1,000 mls @ 83 mls/hr IV ASDIR [facility] Last Admin: 09/21/19 21:11 Dose: 83 mls/hr Insulin Aspart (Novolog Vial Sliding Scale -) 1 vial SQ ACHS [facility]; Protocol Last Admin: 09/22/19 13:16 Dose: Not Given Nadolol (Corgard -) 20 mg PO DAILY [facility] Last Admin: 09/22/19 09:40 Dose: 20 mg - Objective Vital Signs: Vital Signs Temperature 98.1 F 09/22/19 09:00 Pulse Rate 83 09/22/19 09:00 Respiratory Rate 18 09/22/19 09:00 Blood Pressure 117/55 L 09/22/19 09:00 O2 Sat by Pulse Oximetry (%) 94 L 09/22/19 09:00 Eyes: Yes: WNL, Conjunctiva Clear, EOM Intact HENT: Yes: WNL, Atraumatic, Normocephalic Neck: Yes: WNL, Supple, Trachea Midline Cardiovascular: Yes: WNL, Regular Rate and Rhythm Respiratory: Yes: WNL, Regular, CTA Bilaterally Gastrointestinal: Yes: WNL, Normal Bowel Sounds Genitourinary: Yes: WNL Musculoskeletal: Yes: WNL Extremities: Yes: WNL Edema: No Integumentary: Yes: WNL Neurological: Yes: WNL, Alert, Oriented ...Motor Strength: WNL Psychiatric: Yes: WNL Labs: CBC, BMP 09/22/19 07:05 09/22/19 07:05 INR, PTT INR 1.13 (0.83-1.09) H 09/21/19 11:20 Assessment/Plan - Problems (1) Respiratory failure with hypoxia and hypercapnia Code(s): J96.91 - RESPIRATORY FAILURE, UNSPECIFIED WITH HYPOXIA; J96.92 - RESPIRATORY FAILURE, UNSPECIFIED WITH HYPERCAPNIA (2) Cirrhosis Code(s): K74.60 - UNSPECIFIED CIRRHOSIS OF LIVER (3) Hypoxia Code(s): R09.02 - HYPOXEMIA (4) Pneumonia Code(s): J18.9 - PNEUMONIA, UNSPECIFIED ORGANISM (5) Troponin level elevated Assessment/Plan: TNI 0.26 (with CK 44)-->0.24 TNi 0.02 in 2016. EKG: NSR; suggestion of old IW and/or lateral myocardial injury; no acute STT changes. Plan: f/u on telemetry ECHO nl LVEF, Plan stress test when stable Code(s): R79.89 - OTHER SPECIFIED ABNORMAL FINDINGS OF BLOOD CHEMISTRY (6) Abnormal LFTs (liver function tests) Code(s): R79.89 - OTHER SPECIFIED ABNORMAL FINDINGS OF BLOOD CHEMISTRY (7) Hyperlipidemia with target LDL less than 70 Code(s): E78.5 - HYPERLIPIDEMIA, UNSPECIFIED (8) Pneumonia Assessment/Plan: On antibiotics. Fluids (PO and IV). Code(s): J18.9 - PNEUMONIA, UNSPECIFIED ORGANISM Qualifiers: Pneumonia type: aspiration pneumonia Aspiration pneumonia type: due to vomit Lung location: lower lobe of lung (9) Status post left knee replacement Code(s): Z96.652 - PRESENCE OF LEFT ARTIFICIAL KNEE JOINT (10) Hyperkalemia Assessment/Plan: F/u electrolytes as he undergoes hydration. Code(s): E87.5 - HYPERKALEMIA (11) Dehydration Assessment/Plan: Start IV fluids; encourage PO fluids. F/u Is and Os, electrolytes (mild hyperkalemia on admission). Code(s): E86.0 - DEHYDRATION (12) Acquired elevated diaphragm Assessment/Plan: CT chest: significantly elevated left hemidiagphragm with related atelectasis; no pleural effusion. Being treated for pneumonia. On fluids. Code(s): J98.6 - DISORDERS OF DIAPHRAGM (13) Hematuria Assessment/Plan: f/u Hb. F/u with urologist. Code(s): R31.9 - HEMATURIA, UNSPECIFIED Qualifiers: Glomerular morphologic changes: dense deposit disease (14) Pulmonary HTN Code(s): I27.20 - PULMONARY HYPERTENSION, UNSPECIFIED
--- NOTE | 2019-09-22 16:28 | PN ---
Physical Exam: SUBJECTIVE: Patient seen and examined at the bedside. on supplemental oxygen, denies any chest pain or shortness of breath. OBJECTIVE: Patient is an 79 year old male with a significant past medical history of hypertension and diabetes. He was scheduled for a scheduled penile biopsy as an outpatient at [facility]. He was noted to have low oxygen levels in the 80s during pre-op but was asymptomatic without any complaints. Patient denies any chest pain or palpitations, reports baseline limited exercise tolerance secondary to right knee pain, denies any new leg swelling but reports orthopnea at home and has to use a few pillows (2-3) to prop him up to sleep. At baseline has ankle swelling +1 bilaterally. No known exposures, no smoking history, no recent DVT or PE risk factors. imaging: cta/chest: no evidence of PE, enlarged central pulmonary arteries consistent with pulm. hypertension, elevation of the left hemidiaphragm with extensive atelectatic changes involving the left upper and lower lobes. possible acute pneumonia within the left upper lobe cannot be excluded. 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 Vital Signs Period Temp Pulse Resp BP Sys/Caal Pulse Ox Last 24 Hr 97.9 F-98.4 F 74-107 18-21 108-131/49-74 92-94 GENERAL: Awake, alert, and fully oriented, in no acute distress. tolerating room air HEAD: Normal with no signs of trauma. EYES: Pupils equal, round and reactive to light, extraocular movements intact, sclera anicteric, conjunctiva clear. No lid lag. EARS, NOSE, THROAT: Ears normal, nares patent, oropharynx clear without exudates. Moist mucous membranes. NECK: Normal range of motion, supple without lymphadenopathy, JVD, or masses. LUNGS: left lung with diminished breath sounds, right lung clear to auscultation HEART: Regular rate and rhythm ABDOMEN: Soft, nontender, not distended, normoactive bowel sounds, no guarding, no rebound, no masses. No hepatomegaly or splenomegaly. MUSCULOSKELETAL: Normal range of motion at all joints. No bony deformities or tenderness. No CVA tenderness. UPPER EXTREMITIES: No peripheral edema. LOWER EXTREMITIES: 2+ peripheral edema bilaterally lower ext. NEUROLOGICAL: Normal speech. Normal gait. PSYCHIATRIC: Appropriate mood and affect. SKIN: Warm, dry, normal turgor, no rashes or lesions noted, normal capillary refill. Laboratory Results - last 24 hr 09/21/19 09/21/19 09/21/19 15:50 17:40 21:10 WBC RBC Hgb Hct MCV MCH MCHC RDW Plt Count MPV Absolute Neuts (auto) Neutrophils % Lymphocytes % Monocytes % Eosinophils % Basophils % Nucleated RBC % Sodium Potassium Chloride Carbon Dioxide Anion Gap BUN Creatinine Est GFR (CKD-EPI)AfAm Est GFR (CKD-EPI)NonAf POC Glucometer 121 Random Glucose Hemoglobin A1c % Calcium Magnesium Total Bilirubin AST ALT Alkaline Phosphatase Troponin I 0.24 H Total Protein Albumin Triglycerides Cholesterol Total LDL Cholesterol HDL Cholesterol Urine Color Yellow Urine Appearance Clear Urine pH 5.0 Ur Specific [place] 1.025 Urine Protein Negative Urine Glucose (UA) Negative Urine Ketones Negative Urine Blood 3+ H Urine Nitrite Negative Urine Bilirubin Negative Urine Urobilinogen 0.2 Ur Leukocyte Esterase Trace Urine WBC (Auto) 1 Urine RBC (Auto) 22 Urine Casts (Auto) 1 U Epithel Cells (Auto) 0.4 Urine Bacteria (Auto) 1.5 09/22/19 09/22/19 09/22/19 05:47 07:05 07:05 WBC 4.9 RBC 3.46 L Hgb 11.3 L Hct 33.9 L MCV 98.0 H MCH 32.8 MCHC 33.4 RDW 17.0 H Plt Count 123 L D MPV 8.2 Absolute Neuts (auto) 3.1 Neutrophils % 63.6 D Lymphocytes % 22.1 D Monocytes % 6.2 Eosinophils % 7.4 H D Basophils % 0.7 Nucleated RBC % 0 Sodium 136 Potassium 4.2 Chloride 95 L Carbon Dioxide 36 H Anion Gap 5 L BUN 32.2 H Creatinine 1.3 Est GFR (CKD-EPI)AfAm 59.31 Est GFR (CKD-EPI)NonAf 51.17 POC Glucometer 116 Random Glucose 109 H Hemoglobin A1c % Calcium 8.5 Magnesium 1.8 Total Bilirubin 1.2 H AST 30 ALT 17 Alkaline Phosphatase 100 Troponin I 0.21 H Total Protein 6.0 L Albumin 2.6 L Triglycerides 89 Cholesterol 126 Total LDL Cholesterol 62 HDL Cholesterol 50 Urine Color Urine Appearance Urine pH Ur Specific [place] Urine Protein Urine Glucose (UA) Urine Ketones Urine Blood Urine Nitrite Urine Bilirubin Urine Urobilinogen Ur Leukocyte Esterase Urine WBC (Auto) Urine RBC (Auto) Urine Casts (Auto) U Epithel Cells (Auto) Urine Bacteria (Auto) 09/22/19 09/22/19 07:05 12:25 WBC RBC Hgb Hct MCV MCH MCHC RDW Plt Count MPV Absolute Neuts (auto) Neutrophils % Lymphocytes % Monocytes % Eosinophils % Basophils % Nucleated RBC % Sodium Potassium Chloride Carbon Dioxide Anion Gap BUN Creatinine Est GFR (CKD-EPI)AfAm Est GFR (CKD-EPI)NonAf POC Glucometer 123 Random Glucose Hemoglobin A1c % 5.3 Calcium Magnesium Total Bilirubin AST ALT Alkaline Phosphatase Troponin I Total Protein Albumin Triglycerides Cholesterol Total LDL Cholesterol HDL Cholesterol Urine Color Urine Appearance Urine pH Ur Specific [place] Urine Protein Urine Glucose (UA) Urine Ketones Urine Blood Urine Nitrite Urine Bilirubin Urine Urobilinogen Ur Leukocyte Esterase Urine WBC (Auto) Urine RBC (Auto) Urine Casts (Auto) U Epithel Cells (Auto) Urine Bacteria (Auto) Active Medications Generic Name Dose Route Start Last Admin Trade Name Freq PRN Reason Stop Dose Admin Azithromycin 500 mg in 250 mls @ 250 mls/hr 09/21/19 17:45 09/22/19 09:40 Zithromax 500mg Ivpb (Pre-Docked) IVPB 250 mls/hr DAILY JESSICA Administration Dextrose/Sodium Chloride 1,000 mls @ 83 mls/hr 09/21/19 20:30 09/21/19 21:11 D5-1/2ns - IV 83 mls/hr ASDIR JESSICA Administration Insulin Aspart 1 vial 09/21/19 22:00 09/22/19 13:16 Novolog Vial Sliding Scale - SQ Not Given ACHS JESSICA Protocol Nadolol 20 mg 09/22/19 10:00 09/22/19 09:40 Corgard - PO 20 mg DAILY JESSICA Administration ASSESSMENT/PLAN: Problem List - Problems (1) Acute hypercapnic respiratory failure Assessment/Plan: patient airway stable, on 2 liters of nasal cannula and alternate with venti mask. will order pre and post pulmonary west stable, mental status at baseline co2 elevated at 57 pulmonary following Code(s): J96.02 - ACUTE RESPIRATORY FAILURE WITH HYPERCAPNIA (2) Cirrhosis Assessment/Plan: large serpignous varicies within the upper abdomen seen. seen by GI who recommends outpatient follow up. started on nadolol hepatitis panel ordered Code(s): K74.60 - UNSPECIFIED CIRRHOSIS OF LIVER (3) Hypoxia Assessment/Plan: cta with significant atelectsis of left upper and lower lobe as well as possible acute pneumonia. patient is afebrile and hemodynaically stable. given ceftriaxone and azithromycin pending pulmonary further recommendations monitor air way 2 liters of nasal cannula, duonebs ordered currently reports being comfortable on room air, however reports orthpnea bnp stable Code(s): R09.02 - HYPOXEMIA (4) Troponin level elevated Assessment/Plan: trop 0.26, 0.24, no chest pain cardiology consulted and following will hold of on anticoag as patient has varicies seen on CTA Code(s): R79.89 - OTHER SPECIFIED ABNORMAL FINDINGS OF BLOOD CHEMISTRY (5) Abnormal LFTs (liver function tests) Assessment/Plan: monitor daily Code(s): R79.89 - OTHER SPECIFIED ABNORMAL FINDINGS OF BLOOD CHEMISTRY (6) Acute kidney injury Assessment/Plan: monitor daily kidney function renal dose meds Code(s): N17.9 - ACUTE KIDNEY FAILURE, UNSPECIFIED (7) Diabetes Assessment/Plan: novolog ss based on bgms. hmga1c shows controlled diabetes. Code(s): E11.9 - TYPE 2 DIABETES MELLITUS WITHOUT COMPLICATIONS (8) Pneumonia Assessment/Plan: start on ceftriaxone and azithromycin pending pulmonary consult Code(s): J18.9 - PNEUMONIA, UNSPECIFIED ORGANISM (9) Prophylactic measure Assessment/Plan: fen tolerating po/diabetic diet monitor electrolytes full code Code(s): Z29.9 - ENCOUNTER FOR PROPHYLACTIC MEASURES, UNSPECIFIED Visit type - Emergency Visit Emergency Visit: Yes ED Registration Date: 09/21/19 Care time: The patient presented to the Emergency Department on the above date and was hospitalized for further evaluation of their emergent condition. - New Patient This patient is new to me today: No - Critical Care Critical Care patient: No - Discharge Referral Referred to [facility] No
[2019-09-22] MEDS ORDERED: CEFTRIAXONE 1 GM in DEXTROSE 5%-WATER - 50 ML IVPB ONE (17:06)
[2019-09-22] MEDS ORDERED: cefTRIAXone SODIUM 1 GM VIAL ONE (17:40)
[2019-09-22] MEDS ORDERED: DEXTROSE 5%-WATER - 50 ML IVPB ONE (17:41)
[2019-09-22] MEDS: DEXTROSE 5%-0.45% SALINE 1,000 ML IV SCH (21:42)
[2019-09-23 07:44] LABS: BASO % 0.5 % (0-2.0); EOS % 7.9 % (0-4.5); HEMATOCRIT 35.3 % (35.4-49); HEMOGLOBIN 11.8 GM/dL (11.7-16.9); LYMPH % 12.8 % (8-40); MCHC 33.5 g/dl (32.0-35.9); MEAN CELL VOLUME 98.5 fl (80-96); MEAN PLT VOLUME 8.3 fl (7.5-11.1); MONO % 5.1 % (3.8-10.2); NEUT % 73.7 % (42.8-82.8); PLATELET COUNT 135 K/MM3 (134-434); RBC 3.58 M/mm3 (4.00-5.60); RDW 17.1 % (11.9-15.9); WHITE BLOOD COUNT 7.4 K/mm3 (4.0-10.0)
[2019-09-23] MEDS: INSULIN SLIDING SCALE (NOVOLOG) 1 VIAL SQ SCH ×4 (08:00→21:11)
[2019-09-23 08:03] LABS: ALBUMIN 2.7 g/dl (3.4-5.0); BILIRUBIN,TOTAL 0.8 mg/dL (0.2-1); CALCIUM 8.7 mg/dL (8.5-10.1); CREATININE 1.1 mg/dL (0.55-1.3); MAGNESIUM 1.9 mg/dL (1.8-2.4); POTASSIUM 4.7 mmol/L (3.5-5.1); TOT PROT 6.2 g/dl (6.4-8.2)
--- NOTE | 2019-09-23 08:45 | PN ---
Progress Note, Physician History of Present Illness: GI FOLLOW UP NOTE Patient examined and case discussed with Dr Spencer Patient denies nausea vomiting, abdominal pain, diarrhea, constipation, rectal bleeding, or melena. Hepatitis profile results pending. - Current Medication List Current Medications: Active Medications Azithromycin (Zithromax 500mg Ivpb (Pre-Docked)) 500 mg in 250 mls @ 250 mls/hr IVPB DAILY [facility] Last Admin: 09/22/19 09:40 Dose: 250 mls/hr Documented by: Dextrose/Sodium Chloride (D5-1/2ns -) 1,000 mls @ 83 mls/hr IV ASDIR [facility] Last Admin: 09/22/19 21:42 Dose: 83 mls/hr Documented by: Insulin Aspart (Novolog Vial Sliding Scale -) 1 vial SQ ACHS [facility]; Protocol Last Admin: 09/22/19 21:43 Dose: Not Given Documented by: Nadolol (Corgard -) 20 mg PO DAILY [facility] Last Admin: 09/22/19 09:40 Dose: 20 mg Documented by: - Objective Vital Signs: Vital Signs Temperature 97.6 F 09/23/19 01:00 Pulse Rate 81 09/23/19 01:00 Respiratory Rate 20 09/23/19 01:00 Blood Pressure 113/59 L 09/23/19 01:00 O2 Sat by Pulse Oximetry (%) 96 09/22/19 21:00 Constitutional: Yes: No Distress, Calm Eyes: Yes: Conjunctiva Clear HENT: Yes: Atraumatic Cardiovascular: Yes: Regular Rate and Rhythm Respiratory: Yes: Regular, On Nasal O2, Rhonchi Gastrointestinal: Yes: Normal Bowel Sounds, Soft, Abdomen, Obese Neurological: Yes: Alert Psychiatric: Yes: Alert Labs: CBC, BMP 09/23/19 06:25 09/23/19 06:25 INR, PTT INR 1.13 (0.83-1.09) H 09/21/19 11:20 <Barbi Valera - Last Filed: 09/23/19 08:45> - Current Medication List Current Medications: Active Medications Azithromycin (Zithromax 500mg Ivpb (Pre-Docked)) 500 mg in 250 mls @ 250 mls/hr IVPB DAILY [facility] Last Admin: 09/23/19 09:11 Dose: 250 mls/hr Documented by: Dextrose/Sodium Chloride (D5-1/2ns -) 1,000 mls @ 83 mls/hr IV ASDIR [facility] Last Admin: 09/22/19 21:42 Dose: 83 mls/hr Documented by: Ceftriaxone Sodium 1 gm/ (Dextrose) 50 mls @ 100 mls/hr IVPB DAILY [facility]; Protocol Last Admin: 09/23/19 15:15 Dose: 100 mls/hr Documented by: Insulin Aspart (Novolog Vial Sliding Scale -) 1 vial SQ ACHS [facility]; Protocol Last Admin: 09/23/19 17:15 Dose: 2 units Documented by: Nadolol (Corgard -) 20 mg PO DAILY [facility] Last Admin: 09/23/19 09:11 Dose: 20 mg Documented by: - Objective Vital Signs: Vital Signs Temperature 98.2 F 09/23/19 14:05 Pulse Rate 74 09/23/19 14:05 Respiratory Rate 20 09/23/19 14:05 Blood Pressure 118/54 L 09/23/19 14:05 O2 Sat by Pulse Oximetry (%) 96 09/23/19 09:00 Labs: CBC, BMP 09/23/19 06:25 09/23/19 06:25 INR, PTT INR 1.13 (0.83-1.09) H 09/21/19 11:20 <Hector Spencer - Last Filed: 09/23/19 17:39> Problem List - Problems (1) Cirrhosis Assessment/Plan: R>EGD as outpatient to R/O Varices Chronic liver work-up as outpatient AFP [id number] and Abdominal US [id number] to screen for hepatoma instructed to follow up as outpatient Hepatitis profile results pending patient instructed to he will need close follow up with Dr Spencer as an outpatient Code(s): K74.60 - UNSPECIFIED CIRRHOSIS OF LIVER <Barbi Valera - Last Filed: 09/23/19 08:45> - Problems (1) Cirrhosis, alcoholic Code(s): K70.30 - ALCOHOLIC CIRRHOSIS OF LIVER WITHOUT ASCITES <Hector Spencer - Last Filed: 09/23/19 17:39>
[2019-09-23] MEDS: NADOLOL 20 MG TABLET (FP) PO SCH (09:11)
[2019-09-23] MEDS: AZITHROMYCIN IVPB 500 MG/250 ML BAG IVPB SCH (09:11)
--- NOTE | 2019-09-23 15:00 | PN ---
Progress Note (short form) - Note Progress Note: Resting in NAD. No CP or SOB. No acute events overnight. Intake & Output 09/20/19 09/21/19 09/22/19 09/23/19 23:59 23:59 23:59 23:59 Intake Total 300 2660 1130 Output Total 800 900 Balance -500 1760 1130 Weight 198 lb 197 lb 6.4 oz Last Vital Signs Temp Pulse Resp BP Pulse Ox 98 F 74 20 115/88 96 09/23/19 09:00 09/23/19 09:00 09/23/19 09:00 09/23/19 09:00 09/23/19 09:00 Active Medications Azithromycin (Zithromax 500mg Ivpb (Pre-Docked)) 500 mg in 250 mls @ 250 mls/hr IVPB DAILY [facility] Last Admin: 09/23/19 09:11 Dose: 250 mls/hr Documented by: Dextrose/Sodium Chloride (D5-1/2ns -) 1,000 mls @ 83 mls/hr IV ASDIR [facility] Last Admin: 09/22/19 21:42 Dose: 83 mls/hr Documented by: Insulin Aspart (Novolog Vial Sliding Scale -) 1 vial SQ ACHS [facility]; Protocol Last Admin: 09/23/19 11:15 Dose: Not Given Documented by: Nadolol (Corgard -) 20 mg PO DAILY [facility] Last Admin: 09/23/19 09:11 Dose: 20 mg Documented by: Constitutional: Yes: No Distress, Calm Eyes: Yes: Conjunctiva Clear HENT: Yes: Atraumatic Cardiovascular: Yes: Regular Rate and Rhythm Respiratory: Yes: bilateral coarse Rhonchi, no wheeze Gastrointestinal: Yes: Normal Bowel Sounds, Soft, Abdomen, Obese Neurological: Yes: Alert Psychiatric: Yes: Alert Labs: Laboratory Results - last 24 hr 09/22/19 09/22/19 09/23/19 16:31 21:42 06:14 WBC RBC Hgb Hct MCV MCH MCHC RDW Plt Count MPV Absolute Neuts (auto) Neutrophils % Lymphocytes % Monocytes % Eosinophils % Basophils % Nucleated RBC % Sodium Potassium Chloride Carbon Dioxide Anion Gap BUN Creatinine Est GFR (CKD-EPI)AfAm Est GFR (CKD-EPI)NonAf POC Glucometer 101 87 126 Random Glucose Calcium Magnesium Total Bilirubin AST ALT Alkaline Phosphatase Total Protein Albumin 09/23/19 09/23/19 06:25 06:25 WBC 7.4 RBC 3.58 L Hgb 11.8 Hct 35.3 L MCV 98.5 H MCH 33.0 MCHC 33.5 RDW 17.1 H Plt Count 135 MPV 8.3 Absolute Neuts (auto) 5.5 Neutrophils % 73.7 Lymphocytes % 12.8 D Monocytes % 5.1 Eosinophils % 7.9 H Basophils % 0.5 Nucleated RBC % 0 Sodium 138 Potassium 4.7 Chloride 97 L Carbon Dioxide 36 H Anion Gap 5 L BUN 23.0 H Creatinine 1.1 Est GFR (CKD-EPI)AfAm 72.58 Est GFR (CKD-EPI)NonAf 62.62 POC Glucometer Random Glucose 112 H Calcium 8.7 Magnesium 1.9 Total Bilirubin 0.8 AST 34 ALT 20 Alkaline Phosphatase 115 Total Protein 6.2 L Albumin 2.7 L IMP DYSPNEA ACUTE ON CHRONIC HYPOXEMIC/ HYPERCAPNEIC RESPIRATORY FAILURE PULMONARY HTN CHRONIC ATELECTATIC CHANGES LEFT HEMITHORAX LIKELY LEFT DIAPHRAGMATIC PARALYSIS ELEVATED TROPONIN HTN DM PLAN SUPPLEMENTAL O2 NEEDE SNIFF TEST IF POSSIBLE OUTPATIENT PFTS SLEEP STUDIES AMBULATORY O2 SAT ON PRIOR TO DISCHARGE ABX DR GUPTA
--- NOTE | 2019-09-23 15:06 | PN ---
Physical Exam: SUBJECTIVE: Patient seen and examined at the bedside. in no acute distress, on supplemental oxygen, encouraged to use incentive spirometer. OBJECTIVE: Patient is an 79 year old male with a significant past medical history of hypertension and diabetes. He was scheduled for a scheduled penile biopsy as an outpatient at [facility]. He was noted to have low oxygen levels in the 80s during pre-op but was asymptomatic without any complaints. Patient denies any chest pain or palpitations, reports baseline limited exercise tolerance secondary to right knee pain, denies any new leg swelling but reports orthopnea at home and has to use a few pillows (2-3) to prop him up to sleep. At baseline has ankle swelling +1 bilaterally. No known exposures, no smoking history, no recent DVT or PE risk factors. imaging: cta/chest: no evidence of PE, enlarged central pulmonary arteries consistent with pulm. hypertension, elevation of the left hemidiaphragm with extensive atelectatic changes involving the left upper and lower lobes. possible acute pneumonia within the left upper lobe cannot be excluded. 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 Vital Signs Period Temp Pulse Resp BP Sys/Caal Pulse Ox Last 24 Hr 97.6 F-98.6 F 74-85 20-20 102-137/59-88 96-96 GENERAL: Awake, alert, and fully oriented, in no acute distress. tolerating room air HEAD: Normal with no signs of trauma. EYES: Pupils equal, round and reactive to light, extraocular movements intact, sclera anicteric, conjunctiva clear. No lid lag. EARS, NOSE, THROAT: Ears normal, nares patent, oropharynx clear without exudates. Moist mucous membranes. NECK: Normal range of motion, supple without lymphadenopathy, JVD, or masses. LUNGS: bilateral lungs diminished HEART: Regular rate and rhythm ABDOMEN: Soft, nontender, not distended, normoactive bowel sounds, no guarding, no rebound, no masses. No hepatomegaly or splenomegaly. MUSCULOSKELETAL: Normal range of motion at all joints. No bony deformities or tenderness. No CVA tenderness. UPPER EXTREMITIES: No peripheral edema. LOWER EXTREMITIES: 2+ peripheral edema bilaterally lower ext. NEUROLOGICAL: Normal speech. Normal gait. PSYCHIATRIC: Appropriate mood and affect. SKIN: Warm, dry, normal turgor, no rashes or lesions noted, normal capillary refill. Laboratory Results - last 24 hr 09/22/19 09/22/19 09/23/19 16:31 21:42 06:14 WBC RBC Hgb Hct MCV MCH MCHC RDW Plt Count MPV Absolute Neuts (auto) Neutrophils % Lymphocytes % Monocytes % Eosinophils % Basophils % Nucleated RBC % Sodium Potassium Chloride Carbon Dioxide Anion Gap BUN Creatinine Est GFR (CKD-EPI)AfAm Est GFR (CKD-EPI)NonAf POC Glucometer 101 87 126 Random Glucose Calcium Magnesium Total Bilirubin AST ALT Alkaline Phosphatase Total Protein Albumin 09/23/19 09/23/19 06:25 06:25 WBC 7.4 RBC 3.58 L Hgb 11.8 Hct 35.3 L MCV 98.5 H MCH 33.0 MCHC 33.5 RDW 17.1 H Plt Count 135 MPV 8.3 Absolute Neuts (auto) 5.5 Neutrophils % 73.7 Lymphocytes % 12.8 D Monocytes % 5.1 Eosinophils % 7.9 H Basophils % 0.5 Nucleated RBC % 0 Sodium 138 Potassium 4.7 Chloride 97 L Carbon Dioxide 36 H Anion Gap 5 L BUN 23.0 H Creatinine 1.1 Est GFR (CKD-EPI)AfAm 72.58 Est GFR (CKD-EPI)NonAf 62.62 POC Glucometer Random Glucose 112 H Calcium 8.7 Magnesium 1.9 Total Bilirubin 0.8 AST 34 ALT 20 Alkaline Phosphatase 115 Total Protein 6.2 L Albumin 2.7 L Active Medications Generic Name Dose Route Start Last Admin Trade Name Freq PRN Reason Stop Dose Admin Azithromycin 500 mg in 250 mls @ 250 mls/hr 09/21/19 17:45 09/23/19 09:11 Zithromax 500mg Ivpb (Pre-Docked) IVPB 250 mls/hr DAILY JESSICA Administration Dextrose/Sodium Chloride 1,000 mls @ 83 mls/hr 09/21/19 20:30 09/22/19 21:42 D5-1/2ns - IV 83 mls/hr ASDIR JESSICA Administration Ceftriaxone Sodium 1 gm/ 50 mls @ 200 mls/hr 09/23/19 15:15 Dextrose IVPB DAILY JESSICA Protocol Insulin Aspart 1 vial 09/21/19 22:00 09/23/19 11:15 Novolog Vial Sliding Scale - SQ Not Given ACHS JESSICA Protocol Nadolol 20 mg 09/22/19 10:00 09/23/19 09:11 Corgard - PO 20 mg DAILY JESSICA Administration ASSESSMENT/PLAN: Problem List - Problems (1) Acute hypercapnic respiratory failure Assessment/Plan: patient airway stable, on 2 liters of nasal cannula and alternate with venti mask. pre and post shows need for home oxygen pulmonary west stable, mental status at baseline co2 elevated at 57 pulmonary following Code(s): J96.02 - ACUTE RESPIRATORY FAILURE WITH HYPERCAPNIA (2) Cirrhosis Assessment/Plan: large serpignous varicies within the upper abdomen seen. seen by GI who recommends outpatient follow up. started on nadolol hepatitis panel ordered Code(s): K74.60 - UNSPECIFIED CIRRHOSIS OF LIVER (3) Hypoxia Assessment/Plan: cta with significant atelectsis of left upper and lower lobe as well as possible acute pneumonia. patient is afebrile and hemodynaically stable. given ceftriaxone and azithromycin pending pulmonary further recommendations monitor air way 2 liters of nasal cannula, duonebs ordered currently reports being comfortable on room air, however reports orthpnea bnp stable Code(s): R09.02 - HYPOXEMIA (4) Troponin level elevated Assessment/Plan: trop 0.26, 0.24, no chest pain cardiology consulted and following will hold of on anticoag as patient has varicies seen on CTA Code(s): R79.89 - OTHER SPECIFIED ABNORMAL FINDINGS OF BLOOD CHEMISTRY (5) Abnormal LFTs (liver function tests) Assessment/Plan: monitor daily Code(s): R79.89 - OTHER SPECIFIED ABNORMAL FINDINGS OF BLOOD CHEMISTRY (6) Acute kidney injury Assessment/Plan: monitor daily kidney function renal dose meds Code(s): N17.9 - ACUTE KIDNEY FAILURE, UNSPECIFIED (7) Diabetes Assessment/Plan: novolog ss based on bgms. hmga1c shows controlled diabetes. Code(s): E11.9 - TYPE 2 DIABETES MELLITUS WITHOUT COMPLICATIONS (8) Pneumonia Assessment/Plan: start on ceftriaxone and azithromycin pending pulmonary consult Code(s): J18.9 - PNEUMONIA, UNSPECIFIED ORGANISM (9) Prophylactic measure Assessment/Plan: fen tolerating po/diabetic diet monitor electrolytes full code Code(s): Z29.9 - ENCOUNTER FOR PROPHYLACTIC MEASURES, UNSPECIFIED Visit type - Emergency Visit Emergency Visit: Yes ED Registration Date: 09/21/19 Care time: The patient presented to the Emergency Department on the above date and was hospitalized for further evaluation of their emergent condition. - New Patient This patient is new to me today: No - Critical Care Critical Care patient: No - Discharge Referral Referred to [facility] No
[2019-09-23] MEDS: CEFTRIAXONE 1 GM in DEXTROSE 5%-WATER - 50 ML IVPB SCH (15:15)
[2019-09-23] MEDS ORDERED: cefTRIAXone SODIUM 1 GM VIAL ONE (16:22)
[2019-09-23] MEDS ORDERED: DEXTROSE 5%-WATER - 50 ML IVPB ONE (16:22)
[2019-09-23] MEDS: DEXTROSE 5%-0.45% SALINE 1,000 ML IV SCH (21:08)
[2019-09-24] MEDS: INSULIN SLIDING SCALE (NOVOLOG) 1 VIAL SQ SCH ×4 (06:02→21:54)
[2019-09-24] MEDS ORDERED: cefTRIAXone SODIUM 1 GM VIAL ONE (10:18)
[2019-09-24] MEDS ORDERED: PT OWN MED DRAWER 7, Y5N ONE (10:18)
[2019-09-24] MEDS ORDERED: DEXTROSE 5%-WATER - 50 ML IVPB ONE (10:18)
[2019-09-24] MEDS: CEFTRIAXONE 1 GM in DEXTROSE 5%-WATER - 50 ML IVPB SCH (10:28)
[2019-09-24] MEDS: NADOLOL 20 MG TABLET (FP) PO SCH (10:29)
--- NOTE | 2019-09-24 11:13 | PN ---
Progress Note, Physician History of Present Illness: pulmonary alert,oob-chair,comfortable ,-sob - Current Medication List Current Medications: Active Medications Azithromycin (Zithromax 500mg Ivpb (Pre-Docked)) 500 mg in 250 mls @ 250 mls/hr IVPB DAILY [facility] Last Admin: 09/23/19 09:11 Dose: 250 mls/hr Documented by: Dextrose/Sodium Chloride (D5-1/2ns -) 1,000 mls @ 83 mls/hr IV ASDIR [facility] Last Admin: 09/23/19 21:08 Dose: Not Given Documented by: Ceftriaxone Sodium 1 gm/ (Dextrose) 50 mls @ 100 mls/hr IVPB DAILY [facility]; Protocol Last Admin: 09/24/19 10:28 Dose: 100 mls/hr Documented by: Insulin Aspart (Novolog Vial Sliding Scale -) 1 vial SQ ACHS [facility]; Protocol Last Admin: 09/24/19 06:02 Dose: Not Given Documented by: Nadolol (Corgard -) 20 mg PO DAILY [facility] Last Admin: 09/24/19 10:29 Dose: 20 mg Documented by: - Objective Vital Signs: Vital Signs Temperature 98.4 F 09/24/19 06:00 Pulse Rate 75 09/24/19 06:00 Respiratory Rate 20 09/24/19 06:00 Blood Pressure 111/53 L 09/24/19 06:00 O2 Sat by Pulse Oximetry (%) 95 09/23/19 21:00 Constitutional: Yes: Well Nourished, Calm Eyes: Yes: WNL HENT: Yes: WNL Neck: Yes: WNL Cardiovascular: Yes: Regular Rate and Rhythm, S1, S2 Respiratory: Yes: Rhonchi (FEW RHONCHI) Gastrointestinal: Yes: Normal Bowel Sounds, Soft Extremities: Yes: WNL Edema: Yes Labs: CBC, BMP 09/23/19 06:25 09/23/19 06:25 INR, PTT INR 1.13 (0.83-1.09) H 09/21/19 11:20 Problem List - Problems (1) Acquired elevated diaphragm Code(s): J98.6 - DISORDERS OF DIAPHRAGM (2) Diabetes Code(s): E11.9 - TYPE 2 DIABETES MELLITUS WITHOUT COMPLICATIONS (3) Hypoxia Code(s): R09.02 - HYPOXEMIA (4) Pulmonary HTN Code(s): I27.20 - PULMONARY HYPERTENSION, UNSPECIFIED (5) Respiratory failure with hypoxia and hypercapnia Code(s): J96.91 - RESPIRATORY FAILURE, UNSPECIFIED WITH HYPOXIA; J96.92 - RESPIRATORY FAILURE, UNSPECIFIED WITH HYPERCAPNIA (6) Acute hypercapnic respiratory failure Code(s): J96.02 - ACUTE RESPIRATORY FAILURE WITH HYPERCAPNIA (7) HTN (hypertension) Code(s): I10 - ESSENTIAL (PRIMARY) HYPERTENSION (8) Troponin I above reference range Code(s): R79.89 - OTHER SPECIFIED ABNORMAL FINDINGS OF BLOOD CHEMISTRY Assessment/Plan IMP DYSPNEA/HYPOXEMIA ACUTE ON CHRONIC HYPOXEMIC/ HYPERCAPNEIC RESPIRATORY FAILURE PULMONARY HTN CHRONIC ATELECTATIC CHANGES LEFT HEMITHORAX LIKELY LEFT DIAPHRAGMATIC PARALYSIS ELEVATED TROPONIN HTN DM LIKELY OSAS PLAN SUPPLEMENTAL O2 SNIFF TEST OUTPATIENT PFTS TREND TROPONINS SLEEP STUDIES AMBULATORY O2 SAT ON RA PRIOR TO DISCHARGE DR VILLASEÑOR Problem List - Problems (1) Acquired elevated diaphragm Code(s): J98.6 - DISORDERS OF DIAPHRAGM (2) Diabetes Code(s): E11.9 - TYPE 2 DIABETES MELLITUS WITHOUT COMPLICATIONS (3) Hypoxia Code(s): R09.02 - HYPOXEMIA (4) Pulmonary HTN Code(s): I27.20 - PULMONARY HYPERTENSION, UNSPECIFIED (5) Respiratory failure with hypoxia and hypercapnia Code(s): J96.91 - RESPIRATORY FAILURE, UNSPECIFIED WITH HYPOXIA; J96.92 - RESPIRATORY FAILURE, UNSPECIFIED WITH HYPERCAPNIA (6) Acute hypercapnic respiratory failure Code(s): J96.02 - ACUTE RESPIRATORY FAILURE WITH HYPERCAPNIA (7) HTN (hypertension) Code(s): I10 - ESSENTIAL (PRIMARY) HYPERTENSION (8) Troponin I above reference range Code(s): R79.89 - OTHER SPECIFIED ABNORMAL FINDINGS OF BLOOD CHEMISTRY
[2019-09-24 11:29] LABS: BASO % 0.7 % (0-2.0); EOS % 5.1 % (0-4.5); HEMATOCRIT 34.1 % (35.4-49); HEMOGLOBIN 11.5 GM/dL (11.7-16.9); LYMPH % 15.1 % (8-40); MCH 33.4 pg (25.7-33.7); MCHC 33.7 g/dl (32.0-35.9); MEAN PLT VOLUME 8.2 fl (7.5-11.1); MONO % 5.3 % (3.8-10.2); NEUT % 73.8 % (42.8-82.8); PLATELET COUNT 153 K/MM3 (134-434); RBC 3.44 M/mm3 (4.00-5.60); RDW 16.9 % (11.9-15.9); WHITE BLOOD COUNT 8.2 K/mm3 (4.0-10.0)
--- NOTE | 2019-09-24 11:51 | CON.ID ---
Consult Consult Specialty:: infectious diseases Referred by:: Jennifer Reason for Consultation:: pneumonia - History of Present Illness Chief Complaint: sob History of Present Illness: 79-year-old man with history of hypertension, diabetes,liver cirrhosis, admitted for hypoxia. In ER, TNI was noted to be elevated (0.26). Patient denies any chest pain or palpitations; reports baseline limited exercise tolerance secondary to right knee pain, denies any new leg swelling, or orthopnea. At baseline, has ankle swelling, and reports sleeping on 2-3 pillows. patient mentions that everything started from friday No known exposures, no no smoking history, no recent DVT or PE risk factors. 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, Other Cardio/Vascular: Yes: Aortic Insufficiency, HTN Pulmonary: Yes: COPD, Pneumonia Hepatobiliary: Yes: Other (cirrhosis, varices, splenomegaly, portal hypertension) Musculoskeletal: Yes: Osteoarthritis Endocrine: Yes: Diabetes Mellitus - Past Surgical History Past Surgical History: Yes: Joint Replacement (Left TKR) - Alcohol/Substance Use Hx Alcohol Use: Yes History of Substance Use: reports: None - Smoking History Smoking history: Never smoked Have you smoked in the past 12 months: No - Social History Usual Living Arrangement: Other ( from -lives alone) ADL: Independent Home Medications - Allergies Allergies/Adverse Reactions: Allergies Allergy/AdvReac Type Severity Reaction Status Date / Time No Known Drug Allergies Allergy Verified 04/11/16 09:50 - Home Medications Home Medications: Ambulatory Orders Sitagliptin Phosphate [Januvia] 25 mg PO DAILY 09/21/19 Nadolol [Corgard -] 20 mg PO DAILY #90 tablet 09/24/19 Review of Systems - Review of Systems Constitutional: reports: No Symptoms Eyes: reports: No Symptoms HENT: reports: No Symptoms Neck: reports: No Symptoms Cardiovascular: reports: No Symptoms Respiratory: reports: SOB, SOB on Exertion Gastrointestinal: reports: No Symptoms Genitourinary: reports: No Symptoms Musculoskeletal: reports: No Symptoms Integumentary: reports: No Symptoms Neurological: reports: No Symptoms Endocrine: reports: No Symptoms Hematology/Lymphatic: reports: No Symptoms Psychiatric: reports: No Symptoms Physical Exam Vital Signs: Vital Signs Temperature 98.4 F 09/24/19 06:00 Pulse Rate 75 09/24/19 06:00 Respiratory Rate 20 09/24/19 06:00 Blood Pressure 111/53 L 09/24/19 06:00 O2 Sat by Pulse Oximetry (%) 95 09/23/19 21:00 Constitutional: Yes: No Distress, Calm Cardiovascular: Yes: S1, S2 Respiratory: Yes: Regular, On Nasal O2, Poor Air Entry Gastrointestinal: Yes: Normal Bowel Sounds, Soft Musculoskeletal: Yes: WNL Extremities: Yes: WNL Neurological: Yes: Alert, Oriented Psychiatric: Yes: Alert, Oriented Labs: CBC, BMP 09/24/19 10:45 Imaging - Results Chest X-ray: Report Reviewed, Image Reviewed Cat Scan: Report Reviewed, Image Reviewed Assessment/Plan Problem List - Problems (1) Acquired elevated diaphragm Code(s): J98.6 - DISORDERS OF DIAPHRAGM (2) Diabetes Code(s): E11.9 - TYPE 2 DIABETES MELLITUS WITHOUT COMPLICATIONS (3) Hypoxia Code(s): R09.02 - HYPOXEMIA (4) Pulmonary HTN Code(s): I27.20 - PULMONARY HYPERTENSION, UNSPECIFIED (5) Respiratory failure with hypoxia and hypercapnia Code(s): J96.91 - RESPIRATORY FAILURE, UNSPECIFIED WITH HYPOXIA; J96.92 - RESPIRATORY FAILURE, UNSPECIFIED WITH HYPERCAPNIA (6) Acute hypercapnic respiratory failure Code(s): J96.02 - ACUTE RESPIRATORY FAILURE WITH HYPERCAPNIA (7) HTN (hypertension) Code(s): I10 - ESSENTIAL (PRIMARY) HYPERTENSION (8) Troponin I above reference range Code(s): R79.89 - OTHER SPECIFIED ABNORMAL FINDINGS OF BLOOD CHEMISTRY low suspicion of pneumonia but would send patient on augmentin for couple of days also if the breathing does not come back to base line need to repeat ct scan
--- NOTE | 2019-09-24 12:05 | DS ---
Physical Exam: SUBJECTIVE: Patient seen and examined Patient is an 79 year old male with a significant past medical history of hypertension and diabetes. He was scheduled for a scheduled penile biopsy as an outpatient at [facility]. He was noted to have low oxygen levels in the 80s during pre-op but was asymptomatic without any complaints. Patient denies any chest pain or palpitations, reports baseline limited exercise tolerance secondary to right knee pain, denies any new leg swelling but reports orthopnea at home and has to use a few pillows (2-3) to prop him up to sleep. At baseline has ankle swelling +1 bilaterally. No known exposures, no smoking history, no recent DVT or PE risk factors. imaging: cta/chest: no evidence of PE, enlarged central pulmonary arteries consistent with pulm. hypertension, elevation of the left hemidiaphragm with extensive atelectatic changes involving the left upper and lower lobes. possible acute pneumonia within the left upper lobe cannot be excluded. 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 Vital Signs Period Temp Pulse Resp BP Sys/Caal Pulse Ox Last 24 Hr 98.2 F-98.4 F 65-79 20-20 109-118/53-58 95 PHYSICAL EXAM GENERAL: Awake, alert, and fully oriented, in no acute distress. tolerating room air HEAD: Normal with no signs of trauma. EYES: Pupils equal, round and reactive to light, extraocular movements intact, sclera anicteric, conjunctiva clear. No lid lag. EARS, NOSE, THROAT: Ears normal, nares patent, oropharynx clear without exudates. Moist mucous membranes. NECK: Normal range of motion, supple without lymphadenopathy, JVD, or masses. LUNGS: bilateral lungs diminished HEART: Regular rate and rhythm ABDOMEN: Soft, nontender, not distended, normoactive bowel sounds, no guarding, no rebound, no masses. No hepatomegaly or splenomegaly. MUSCULOSKELETAL: Normal range of motion at all joints. No bony deformities or tenderness. No CVA tenderness. UPPER EXTREMITIES: No peripheral edema. LOWER EXTREMITIES: 2+ peripheral edema bilaterally lower ext. NEUROLOGICAL: Normal speech. Normal gait. PSYCHIATRIC: Appropriate mood and affect. SKIN: Warm, dry, normal turgor, no rashes or lesions noted, normal capillary refill. LABS Laboratory Results - last 24 hr 09/23/19 09/23/19 09/24/19 17:14 21:10 06:00 WBC RBC Hgb Hct MCV MCH MCHC RDW Plt Count MPV Absolute Neuts (auto) Neutrophils % Lymphocytes % Monocytes % Eosinophils % Basophils % Nucleated RBC % POC Glucometer 173 115 115 09/24/19 10:45 WBC 8.2 RBC 3.44 L Hgb 11.5 L Hct 34.1 L MCV 99.0 H MCH 33.4 MCHC 33.7 RDW 16.9 H Plt Count 153 MPV 8.2 Absolute Neuts (auto) 6.0 Neutrophils % 73.8 Lymphocytes % 15.1 Monocytes % 5.3 Eosinophils % 5.1 H Basophils % 0.7 Nucleated RBC % 0 POC Glucometer HOSPITAL COURSE: Date of Admission:09/21/19 Date of Discharge: 09/24/19 Minutes to complete discharge: 60 Discharge Summary Problems reviewed: Yes Reason For Visit: CHF Current Active Problems Acquired elevated diaphragm (Acute) Cirrhosis (Acute) Dehydration (Acute) Diabetes (Acute) Hematuria (Acute) Hypoxia (Acute) Pneumonia (Acute) Prophylactic measure (Acute) Pulmonary HTN (Acute) Respiratory failure with hypoxia and hypercapnia (Acute) Troponin I above reference range (Acute) Troponin level elevated (Acute) Condition: Stable - Instructions Diet, Activity, Other Instructions: Mr. Hardy: You were admitted after you were noted to have low oxygen saturations during your testing/planned biopsy. You will be discharged home today with home oxygen use. During your stay you were seen by a flare breaker and a oxygen therapy technician. Here are our discharge instructions: Low oxygen saturations. You will need 2 liters of oxygen continuously. It is important that you follow up with a flare breaker for outpatient workup. You will need a repeat CAT scan of your lungs in approximately 4-6 weeks. Please have this arranged with either the flare breaker or your primary care doctor. During your imaging we noted that you have a large varicies on your upper abdomen. We have started you on Nodolol 20mg daily. PLEASE STOP TAKING the METOPROLOL. NODOLOL substitutes the Metoprolol. You will need to see Dr. Spencer for workup of the Varicies. You will need imaging of your abdomen and this can be arranged with Dr. Spencer. We treated you for a possible pneumonia and will be sending you home on Augmentin 500mg TWICE per day for 5 days. Thank you for allowing us to care for you. Referrals: July Pastrana [Primary Care Provider] - Disposition: VNS/HOME HEALTH CARE - Home Medications Comprehensive Discharge Medication List: Ambulatory Orders Sitagliptin Phosphate [Januvia] 25 mg PO DAILY 09/21/19 Amox-Tr/K Cl [Augmentin - 500Mg Tablet] 1 tab PO BID 5 Days #10 tab 09/24/19 Nadolol [Corgard -] 20 mg PO DAILY #90 tablet 09/24/19 Problem List - Problems (1) Acute hypercapnic respiratory failure Code(s): J96.02 - ACUTE RESPIRATORY FAILURE WITH HYPERCAPNIA (2) Cirrhosis Code(s): K74.60 - UNSPECIFIED CIRRHOSIS OF LIVER (3) Hypoxia Code(s): R09.02 - HYPOXEMIA (4) Troponin level elevated Code(s): R79.89 - OTHER SPECIFIED ABNORMAL FINDINGS OF BLOOD CHEMISTRY (5) Abnormal LFTs (liver function tests) Code(s): R79.89 - OTHER SPECIFIED ABNORMAL FINDINGS OF BLOOD CHEMISTRY (6) Acute kidney injury Code(s): N17.9 - ACUTE KIDNEY FAILURE, UNSPECIFIED (7) Diabetes Code(s): E11.9 - TYPE 2 DIABETES MELLITUS WITHOUT COMPLICATIONS (8) Pneumonia Code(s): J18.9 - PNEUMONIA, UNSPECIFIED ORGANISM (9) Prophylactic measure Code(s): Z29.9 - ENCOUNTER FOR PROPHYLACTIC MEASURES, UNSPECIFIED This patient is new to me today: No Emergency Visit: Yes ED Registration Date: 09/21/19 Care time: The patient presented to the Emergency Department on the above date and was hospitalized for further evaluation of their emergent condition. Critical Care patient: No - Discharge Referral [facility]erred to [facility] Med P.C.: No
[2019-09-24 12:19] LABS: ALBUMIN 2.6 g/dl (3.4-5.0); BILIRUBIN,TOTAL 1.1 mg/dL (0.2-1); BLOOD UREA NITROGEN 19.5 mg/dL (7-18); CALCIUM 8.3 mg/dL (8.5-10.1); CREATININE 1.2 mg/dL (0.55-1.3); MAGNESIUM 2.1 mg/dL (1.8-2.4); POTASSIUM 5.3 mmol/L (3.5-5.1); TOT PROT 6.2 g/dl (6.4-8.2)
[2019-09-24] MEDS: AZITHROMYCIN IVPB 500 MG/250 ML BAG IVPB SCH (12:40)
[2019-09-24] MEDS ORDERED: LACTULOSE 20 GM/30 ML UDC (FOR ORAL USE ONLY) PO ONE (12:45)
[2019-09-24 13:25] LABS: ANISOCYTOSIS 2+; MACROCYTOSIS 0; PLATELET ESTIMATE DECREASED
--- NOTE | 2019-09-24 13:40 | CONS ---
DATE OF CONSULTATION: 09/22/2019 PULMONARY CONSULTATION REFERRING PHYSICIAN: Jennifer Craig NP HISTORY OF PRESENT ILLNESS: Patient is an 79-year-old male, past medical history of hypertension, diabetes, scheduled to have outpatient neurologic procedure, who was noted prior to surgery to be hypoxic. Patient's vitals noted to have O2 saturation of 85% on room air which improved with supplemental O2. He was subsequently transferred to the ER. Patient underwent a CTA of the chest which revealed no evidence of pulmonary emboli. There were large central pulmonary arteries consistent with pulmonary hypertension and a markedly elevated hemidiaphragm with extensive atelectatic changes in the left upper and lower lobes. Patient was admitted with the above. He was also noted to have evidence of cirrhosis . Patient denies any history of occupational exposures. There is no history of COPD or asthma. He is a nonsmoker. He does have a history of pneumonia in the past. He was born in [place] and moved to the [facility] many years ago. PAST MEDICAL HISTORY: Again includes hypertension, diabetes, cirrhosis. REVIEW OF SYSTEMS: No orthopnea, no PND, no shortness of breath, no chest pain, no palpitations, no cough, no hemoptysis, no abdominal pain. CURRENT MEDICATIONS: Zithromax, Corgard, ceftriaxone. PHYSICAL EXAMINATION: General: Patient is an obese male, awake, alert, in no acute distress. Vital Signs: He is afebrile. Blood pressure 102/62, respiratory rate is 20, O2 saturation 96% on 2 L, nasal cannula. HEENT: Normocephalic, atraumatic. Neck: Supple. Heart: Irregular S1, S2. Chest: A few added rhonchi. Abdomen: Soft. Bowel sounds positive. Extremities: No cyanosis or edema. LABORATORIES: WBC 4.9, hemoglobin 11.3, hematocrit 33.9 with a platelet count of 123,000. INR is 1.13. Blood gas: A pH of 7.38, PCO2 of 57, PO2 of 66, bicarbonate of 33 and 1.2. Chemistries: BUN is 32, creatinine 1.3. Troponin mildly elevated at 0.21, initially 0.24. Chest x-ray as noted earlier. IMPRESSION: 1. Dyspnea, likely [id number] hypoxemic, hypercapnic respiratory failure. 2. Pulmonary hypertension. 3. Chronic atelectatic changes, left hemithorax. 4. 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 5. Elevated troponin. 6. Hypertension. 7. Diabetes. PLAN: Supplemental O2. Outpatient PFTs. Trend troponins. Sleep study. Ambulatory O2 saturation on room air prior to discharge will determine whether the patient requires home O2. Will also get a sniff test. CAIO VILLASEÑOR M.D. [id number]
[2019-09-24] MEDS ORDERED: SODIUM POLYSTYRENE SULFONATE 15 GM/60 ML BOTTLE PO ONE (16:48)
[2019-09-24 22:06] LABS: HEP B CORE AB, TOT Negative (Negative)
[2019-09-25] MEDS: INSULIN SLIDING SCALE (NOVOLOG) 1 VIAL SQ SCH ×2 (06:16→11:24)
--- NOTE | 2019-09-25 07:03 | PN ---
Progress Note, Physician Chief Complaint: Pt Alert; denies chest pain, dyspnea. History of Present Illness: Mr. Hardy is an 79-year-old man with history of hypertension, diabetes,liver cirrhosis,obesity, now sent from [facility], where he was scheduled to have outpatient urology procedure, for asymptomatic hypoxia. In ER, TNI was noted to be elevated (0.26). Patient denies any chest pain or palpitations; reports baseline limited exercise tolerance secondary to right knee pain, denies any new leg swelling, or orthopnea. At baseline, has ankle swelling, and reports sleeping on 2-3 pillows. No known exposures, no no smoking history, no recent DVT or PE risk factors. - Current Medication List Current Medications: Active Medications Azithromycin (Zithromax 500mg Ivpb (Pre-Docked)) 500 mg in 250 mls @ 250 mls/hr IVPB DAILY [facility] Last Admin: 09/24/19 12:40 Dose: 250 mls/hr Documented by: Dextrose/Sodium Chloride (D5-1/2ns -) 1,000 mls @ 83 mls/hr IV ASDIR [facility] Last Admin: 09/23/19 21:08 Dose: Not Given Documented by: Ceftriaxone Sodium 1 gm/ (Dextrose) 50 mls @ 100 mls/hr IVPB DAILY [facility]; Protocol Last Admin: 09/24/19 10:28 Dose: 100 mls/hr Documented by: Insulin Aspart (Novolog Vial Sliding Scale -) 1 vial SQ ACHS [facility]; Protocol Last Admin: 09/25/19 06:16 Dose: Not Given Documented by: Nadolol (Corgard -) 20 mg PO DAILY [facility] Last Admin: 09/24/19 10:29 Dose: 20 mg Documented by: - Objective Vital Signs: Vital Signs Temperature 98.8 F 09/25/19 05:00 Pulse Rate 86 09/25/19 05:00 Respiratory Rate 22 H 09/25/19 05:00 Blood Pressure 113/48 L 09/25/19 05:00 O2 Sat by Pulse Oximetry (%) 94 L 09/24/19 21:00 Constitutional: Yes: No Distress Eyes: Yes: WNL HENT: Yes: WNL Cardiovascular: Yes: S1, S2 Respiratory: Yes: Regular Gastrointestinal: Yes: Soft ...Rectal Exam: Yes: Deferred Genitourinary: No: Anuria Breast(s): Yes: WNL Musculoskeletal: Yes: Muscle Weakness Extremities: Yes: Cool Edema: Yes Edema: LLE: Trace, RLE: Trace Integumentary: Yes: WNL Neurological: Yes: Alert, Oriented, Weakness Psychiatric: Yes: Alert, Oriented Labs: CBC, BMP 09/24/19 10:45 09/24/19 19:15 INR, PTT INR 1.13 (0.83-1.09) H 09/21/19 11:20 - ....Imaging Chest X-ray: Image Reviewed Ultrasound: Report Reviewed (ECHO) EKG: Image Reviewed Problem List - Problems (1) Respiratory failure with hypoxia and hypercapnia Assessment/Plan: being treated for pneumonia. ECHO: normal LVEF: mildly reduced RVEF (no PE on CT chest), mild-moderate AR; +diastolic dysfunction. Code(s): J96.91 - RESPIRATORY FAILURE, UNSPECIFIED WITH HYPOXIA; J96.92 - RESPIRATORY FAILURE, UNSPECIFIED WITH HYPERCAPNIA (2) Cirrhosis Assessment/Plan: large varices in upper abdomen (CT) Plan for f/u with GI. Now on nadolol. Code(s): K74.60 - UNSPECIFIED CIRRHOSIS OF LIVER (3) Hypoxia Code(s): R09.02 - HYPOXEMIA (4) Pneumonia Assessment/Plan: on antibiotics. Code(s): J18.9 - PNEUMONIA, UNSPECIFIED ORGANISM (5) Troponin level elevated Assessment/Plan: TNI 0.26 (with CK 44)-->0.24 TNi 0.02 in 2016. EKG: NSR; suggestion of old IW and/or lateral myocardial injury; no acute STT changes. ECHO: normal LVEF; abnormal diastolic compliance; mild-mod AR; moderate LAE. Plan: f/u on telemetry F/u cardiac records: consider stress MIBI, if not done recently (may be done as outpatient). Code(s): R79.89 - OTHER SPECIFIED ABNORMAL FINDINGS OF BLOOD CHEMISTRY (6) Abnormal LFTs (liver function tests) Code(s): R79.89 - OTHER SPECIFIED ABNORMAL FINDINGS OF BLOOD CHEMISTRY (7) Hyperlipidemia with target LDL less than 70 Code(s): E78.5 - HYPERLIPIDEMIA, UNSPECIFIED (8) Pneumonia Code(s): J18.9 - PNEUMONIA, UNSPECIFIED ORGANISM Qualifiers: Pneumonia type: aspiration pneumonia Aspiration pneumonia type: due to vomit Lung location: lower lobe of lung (9) Status post left knee replacement Code(s): Z96.652 - PRESENCE OF LEFT ARTIFICIAL KNEE JOINT (10) Hyperkalemia Assessment/Plan: F/u electrolytes as he undergoes hydration; presently, K+ is WNL. Code(s): E87.5 - HYPERKALEMIA (11) Dehydration Assessment/Plan: Started IV fluids; encourage PO fluids. F/u Is and Os, electrolytes (mild hyperkalemia on admission; now WNL). Code(s): E86.0 - DEHYDRATION (12) Acquired elevated diaphragm Assessment/Plan: CT chest: significantly elevated left hemidiagphragm with related atelectasis; no pleural effusion. Being treated for pneumonia. On fluids. Code(s): J98.6 - DISORDERS OF DIAPHRAGM (13) Hematuria Assessment/Plan: f/u Hb. F/u with urologist. Code(s): R31.9 - HEMATURIA, UNSPECIFIED Qualifiers: Glomerular morphologic changes: dense deposit disease (14) Pulmonary HTN Code(s): I27.20 - PULMONARY HYPERTENSION, UNSPECIFIED
[2019-09-25] MEDS ORDERED: AMOX TR/POT CLAV 500MG/125MG TABLETS (FP) PO SCH ×2 (08:30→17:30)
[2019-09-25] MEDS ORDERED: PT OWN MED DRAWER 7, Y5N ONE (09:05)
[2019-09-25] MEDS: NADOLOL 20 MG TABLET (FP) PO SCH (09:14)
[2019-09-25 11:21] LABS: BASO % 1.1 % (0-2.0); EOS % 4.8 % (0-4.5); HEMATOCRIT 33.3 % (35.4-49); LYMPH % 15.2 % (8-40); MCH 33.1 pg (25.7-33.7); MEAN CELL VOLUME 100.2 fl (80-96); MEAN PLT VOLUME 8.6 fl (7.5-11.1); MONO % 5.7 % (3.8-10.2); NEUT % 73.2 % (42.8-82.8); PLATELET COUNT 127 K/MM3 (134-434); RBC 3.32 M/mm3 (4.00-5.60); RDW 16.8 % (11.9-15.9); WHITE BLOOD COUNT 6.4 K/mm3 (4.0-10.0)
[2019-09-25 11:45] LABS: ALBUMIN 2.5 g/dl (3.4-5.0); BILIRUBIN,TOTAL 0.6 mg/dL (0.2-1); BLOOD UREA NITROGEN 22.8 mg/dL (7-18); CREATININE 1.3 mg/dL (0.55-1.3); POTASSIUM 4.2 mmol/L (3.5-5.1); TOT PROT 6.2 g/dl (6.4-8.2)
[2019-09-25 13:08] VITALS: TEMP 98
[2019-09-25 13:19] VITALS: BP 110/60; PULSE 74
== END 2019-09-25 13:22 | disposition home health service (06) | DRG 193 ==
LOC: JER 10:15 → JERBED 12:24 → J4W 16:59
PROVIDERS: ADMIT Internal Medicine; ATTEND Nurse Practitioner Family
DX: J18.9 Pneumonia, unspecified organism (principal); J96.02 Acute respiratory failure with hypercapnia; J96.01 Acute respiratory failure with hypoxia; I50.30 Unspecified diastolic (congestive) heart failure; J98.11 Atelectasis; N17.9 Acute kidney failure, unspecified; I11.0 Hypertensive heart disease with heart failure; E11.9 Type 2 diabetes mellitus without complications; K70.30 Alcoholic cirrhosis of liver without ascites; J98.6 Disorders of diaphragm; E87.5 Hyperkalemia; R79.89 Other specified abnormal findings of blood chemistry; I27.20 Pulmonary hypertension, unspecified; E86.0 Dehydration; M25.561 Pain in right knee; R60.0 Localized edema; I35.1 Nonrheumatic aortic (valve) insufficiency; M19.90 Unspecified osteoarthritis, unspecified site; R31.9 Hematuria, unspecified; Z96.652 Presence of left artificial knee joint; Z29.9 Encounter for prophylactic measures, unspecified; F10.20 Alcohol dependence, uncomplicated
CPT/HCPCS: 36415; 36600; 71045-TC-FY; 71275-TC; 80053; 80061; 81003; 82375; 82550; 82803; 82962; 83036; 83050; 83721; 83735; 83880; 84100; 84132; 84484; 85025; 85610; 86704; 86706; 86707; 86708; 86709; 87086; 87340; 93005; 93010; 93306-TC; 94010; 94761; 97116-GP; 97161-GP; 99285-25; Q9967